=== PATIENT | male | born 2000 | race Caucasian/White ===

== ENCOUNTER 2022-02-16 21:54 | Emergency (ER) | payer OTHER ==
[~2022-02-16] VITALS: Ht 190.5 cm; Wt 61.2 kg
[~2022-02-16 21:54] MED LIST: HUMALOG100 UNIT/1 SC; INSULIN GL100 UNIT/3 SC; KPHOS NEUTRAL PO
[2022-02-16 22:38] LABS: BASOPHILS ABSOLUTE AUTO 0.02 K/mm3 (0.00-0.23); BASOPHILS PERCENT AUTO 0 % (0-2); EOSINOPHILS ABSOLUTE AUTO 0.05 K/mm3 (0.00-0.68); EOSINOPHILS PERCENT AUTO 1 % (0-6); Hematocrit 36.6 % (37.0-53.0); Hemoglobin 13.4 g/dL (13.5-17.5); IMMATURE GRAN ABSOLUTE AUTO 0.01 K/mm3 (0.00-0.10); IMMATURE GRAN PERCENT AUTO 0 % (0-1); LYMPHOCYTES ABSOLUTE AUTO 1.63 K/mm3 (0.84-5.20); LYMPHOCYTES PERCENT AUTO 36 % (21-46); MONOCYTES ABSOLUTE AUTO 0.43 K/mm3 (0.16-1.47); MONOCYTES PERCENT AUTO 10 % (4-13); Mean Corpuscular HGB Conc 36.6 g/dL (31.5-36.5); Mean Corpuscular Volume 82 fL (80-100); Mean Platelet Volume 9.7 fL (9.1-12.4); NEUTROPHILS ABSOLUTE AUTO 2.37 K/mm3 (1.96-9.15); NEUTROPHILS PERCENT AUTO 53 % (41-73); Platelet Count 196 K/mm3 (150-400); RDW Coefficient Variation 12.7 % (11.7-14.2); RDW Standard Deviation 37.5 fL (35.1-46.3); Red Blood Cell Count 4.47 M/mm3 (4.30-5.90); White Blood Cell Count 4.51 K/mm3 (4.00-11.30)
[2022-02-16 22:59] LABS: Albumin, Blood 3.6 g/dL (3.4-5.0); Albumin/Globulin Ratio 1.3 (0.8-1.8); Bilirubin, Total 0.6 mg/dL (0.1-1.0); Bun/Creatinine Ratio 23.3 (12.0-20.0); Calcium, Blood 9.1 mg/dL (8.5-10.1); Creatinine, Blood 0.69 mg/dL (0.60-1.20); Globulin, Blood 2.8 g/dL (2.2-4.0); Potassium, Blood 3.1 mmol/L (3.5-5.5); Total Protein, Blood 6.4 g/dL (6.4-8.2)
[2022-02-17] MEDS ORDERED: BASAGLAR K100 UNIT/1 SC (00:46)
[2022-02-17] MEDS ORDERED: HUMALOG100 UNIT/1 SC (00:46)
[2022-02-17 02:23] LABS: Source, Urine Clean Catch
[2022-02-17 02:32] LABS: Bilirubin, Urine Neg (Neg); Blood, Urine Neg (Neg); Glucose Qualitative, Urine 4+ (Neg); Ketones, Urine 2+ (Neg); Leukocyte Esterase, Urine Neg (Neg); Nitrite, Urine Neg (Neg); Protein, Urine Neg (Neg); Urobilinogen, Urine NORM (Normal)
[2022-02-17 02:33] LABS: Appearance, Urine Clear (Clear); Color, Urine Pale Yellow (P-Yellow)
== END 2022-02-17 03:26 | disposition home or self-care (01) ==
LOC: ER 21:54
PROVIDERS: Emergency Medicine
DX: E10.65 Type 1 diabetes mellitus with hyperglycemia (principal); Z79.4 Long term (current) use of insulin
CPT/HCPCS: 36415; 80053; 81003; 82947; 85025; 96360; 96361; 99283-25; J7030

== ENCOUNTER 2022-09-07 17:09 | Inpatient (IN) | payer OTHER ==
[~2022-09-07] VITALS: Ht 188 cm; Wt 66.1 kg
[2022-09-07 22:25] LABS: Influenza A, PCR NEGATIVE (NEGATIVE); Influenza B, PCR NEGATIVE (NEGATIVE); Resp Syncytial Virus, PCR NEGATIVE (NEGATIVE); SARS-Cov-2 (COVID-19) PCR, MMC NEGATIVE (NEGATIVE)
[2022-09-07 23:01] LABS: Source, Urine Clean Catch
[2022-09-07 23:07] LABS: Bilirubin, Urine Neg (Neg); Blood, Urine 3+ (Neg); Glucose Qualitative, Urine 4+ (Neg); Ketones, Urine 4+ (Neg); Leukocyte Esterase, Urine Neg (Neg); Nitrite, Urine Neg (Neg); Protein, Urine 2+ (Neg); Specific Gravity, Urine 1.025 (1.003-1.022); Urobilinogen, Urine NORM (Normal)
[2022-09-07 23:12] LABS: Appearance, Urine Clear (Clear); Color, Urine Yellow (P-Yellow)
[2022-09-07 23:13] LABS: Bacteria Not Seen /hpf; Red Blood Cells, Urine 0-2 /hpf (0-2); Squamous Epithelial Cells Not Seen /hpf (Few); White Blood Cells, Urine Not Seen /hpf (0-5)
[2022-09-07 23:49] LABS: Bun/Creatinine Ratio 28.5 (12.0-20.0); Calcium, Blood 8.4 mg/dL (8.5-10.1); Creatinine, Blood 0.6 mg/dL (0.60-1.20); Potassium, Blood 5.1 mmol/L (3.5-5.5)
--- NOTE | 2022-09-08 01:34 | NUR ---
PATIENT TO ROOM FROM ER AT 2350, WALKED TO BED. PATIENT IS ALERT AND ORIENTED X4. 02 SATS 100% ON RA, RR 20-25. HR SR 80s, BP STABLE, DENIES CP/PRESSURE. STARTED ON INSULIN DRIP WHEN PATIENT ARRIVED. CALLED HOSPITIALIST. WILL CHANGED FLUIDS FROM LR TO D5 1/2 NS WHEN GLUCOSE <220. MEDICATED PATIENT FOR NAUSEA. CALL LIGHT IN REACH
[2022-09-08 02:23] LABS: BASOPHILS ABSOLUTE AUTO 0.06 K/mm3 (0.00-0.23); BASOPHILS PERCENT AUTO 0 % (0-2); EOSINOPHILS PERCENT AUTO 0 % (0-6); Hematocrit 48.7 % (37.0-53.0); IMMATURE GRAN ABSOLUTE AUTO 0.27 K/mm3 (0.00-0.10); IMMATURE GRAN PERCENT AUTO 1 % (0-1); LYMPHOCYTES ABSOLUTE AUTO 1.31 K/mm3 (0.84-5.20); LYMPHOCYTES PERCENT AUTO 7 % (21-46); MONOCYTES PERCENT AUTO 6 % (4-13); Mean Corpuscular HGB 30.8 pg (26.0-34.0); Mean Corpuscular HGB Conc 32.9 g/dL (31.5-36.5); Mean Corpuscular Volume 94 fL (80-100); Mean Platelet Volume 9.5 fL (9.1-12.4); NEUTROPHILS ABSOLUTE AUTO 16.43 K/mm3 (1.96-9.15); NEUTROPHILS PERCENT AUTO 86 % (41-73); Platelet Count 293 K/mm3 (150-400); RDW Coefficient Variation 13.1 % (11.7-14.2); RDW Standard Deviation 44.6 fL (35.1-46.3); White Blood Cell Count 19.17 K/mm3 (4.00-11.30)
[2022-09-08 02:43] LABS: Bun/Creatinine Ratio 26.4 (12.0-20.0); Calcium, Blood 8.2 mg/dL (8.5-10.1); Creatinine, Blood 0.68 mg/dL (0.60-1.20); Potassium, Blood 5.4 mmol/L (3.5-5.5)
--- NOTE | 2022-09-08 06:02 | NUR ---
SHIFT SUMMARY PATIENT IS ALERT AND ORIENTED X4. 02 SATS 100% ON RA, DENIES SOB. HR SR 90s, BP STABLE. INSULIN AND D5 1/2 NS INFUSING. PATIENT INDEPENDENT IN THE ROOM, HELP WITH CORDS AND IV WHEN UP.
[2022-09-08 06:47] LABS: Bun/Creatinine Ratio 25.3 (12.0-20.0); Calcium, Blood 8.7 mg/dL (8.5-10.1); Creatinine, Blood 0.63 mg/dL (0.60-1.20); Potassium, Blood 4.4 mmol/L (3.5-5.5)
[2022-09-08 09:57] LABS: Creatinine, Blood 0.54 mg/dL (0.60-1.20)
[2022-09-08 16:04] LABS: Bun/Creatinine Ratio 22.6 (12.0-20.0); Calcium, Blood 9.1 mg/dL (8.5-10.1); Creatinine, Blood 0.53 mg/dL (0.60-1.20); Potassium, Blood 3.8 mmol/L (3.5-5.5)
[2022-09-08 17:55] LABS: Bun/Creatinine Ratio 22.6 (12.0-20.0); Calcium, Blood 9.4 mg/dL (8.5-10.1); Creatinine, Blood 0.53 mg/dL (0.60-1.20); Potassium, Blood 3.7 mmol/L (3.5-5.5)
--- NOTE | 2022-09-08 18:39 | NUR ---
SUMMARY PT RESTING IN BED. DENIES PAIN AND N/V. TOLERATING ICE CHIPS. REMAINS ON INSULIN GTT DUE TO CO2 STILL BEING LOW. INSULIN GTT TITRATED BETWEEN 1-4 UNITS/HR. NO SIGN OF DISTRESS, CALL LIGHT IN REACH.
[2022-09-08 21:12] LABS: Bun/Creatinine Ratio 19.8 (12.0-20.0); Calcium, Blood 9.1 mg/dL (8.5-10.1); Creatinine, Blood 0.56 mg/dL (0.60-1.20); Potassium, Blood 3.4 mmol/L (3.5-5.5)
--- NOTE | 2022-09-09 01:29 | NUR ---
PER HOSPITALIST ORDERS INSULIN DRIP WAS STOPPED AROUND 2200, LONG ACTING INSULIN GIVEN AND FLUIDS CHANGED TO 1/2 NS, SEE EMAR. PATIENT EATING AND TOLERATING WELL. INDEPENDENT IN ROOM AND VSS
--- NOTE | 2022-09-09 02:00 | NUR ---
PATIENT TRANSFERED TO MEDICAL FLOOR ROOM 309
--- NOTE | 2022-09-09 05:01 | NUR ---
SHIFT SUMMARY AOX4. ICU TRANS AROUND 0200. VSS. ORIGIONALLY ADMITTED FOR DKA, HAS TRANSITIONED TO AC/HS c SLIDING SCALE INSULIN, COVERAGE GIVEN @HS IN ICU. PT DENIES ANY NEEDS OR N/V, PAIN, DYSPNEA UPON ARRIVING TO RM 309. RESTING COMFORTABLY. CALL LIGHT IN REACH, WILL MONITOR.
[2022-09-09 05:44] LABS: Bun/Creatinine Ratio 20.4 (12.0-20.0); Calcium, Blood 8.7 mg/dL (8.5-10.1); Creatinine, Blood 0.59 mg/dL (0.60-1.20); Potassium, Blood 3.3 mmol/L (3.5-5.5)
[2022-09-09 12:39] LABS: Bun/Creatinine Ratio 22.5 (12.0-20.0); Calcium, Blood 8.7 mg/dL (8.5-10.1); Creatinine, Blood 0.53 mg/dL (0.60-1.20); Potassium, Blood 3.6 mmol/L (3.5-5.5)
--- NOTE | 2022-09-09 15:05 | NUR ---
DISCHARGE DKA [id number], IND IN ROOM. INSTRUCTIONS GONE OVER AT LENGTH WITH PATIENT HE DENIED FURTHER QUESTIONS. PLANS TO FOLLOW UP WITH HIS PCP. EDUCATED ON NEW MEDICATION DOSING. IVS REMOVED PRIOR TO DISCHARGE, WNL. ALL BELONGINGS WITH PATIENT.
== END 2022-09-09 14:07 | disposition home or self-care (01) | DRG 638 ==
LOC: ER 17:09 → ICUE 21:25 → ICUW 21:25 → ER 23:50 → ICUE 23:50 → ER 09-08 23:50 → ICUE 09-09 00:25 → MEDS 09-09 01:47
PROVIDERS: Emergency Medicine; Internal Medicine; Nurse Practitioner Acute Care; ADMIT Internal Medicine
DX: E10.10 Type 1 diabetes mellitus with ketoacidosis without coma (principal); R65.10 Systemic inflammatory response syndrome (SIRS) of non-infectious origin without acute organ dysfunction; F17.210 Nicotine dependence, cigarettes, uncomplicated; F12.10 Cannabis abuse, uncomplicated; Z20.822 Contact with and (suspected) exposure to COVID-19; Z79.899 Other long term (current) drug therapy; Z79.4 Long term (current) use of insulin
CPT/HCPCS: 0241U; 36415; 71045; 80048; 81001; 82947; 83036; 85025; 96361; 96374; 96375; 99285-25; A9270; J1650; J1815; J2405; J2765; J7030; J7042; J7050; J7120

== ENCOUNTER → 2022-09-07 | Outpatient (CLI) | payer OTHER ==
[~2022-09-07] MED LIST changes: +BASAGLAR K100 UNIT/1 SC
[2022-09-07 15:42] LABS: BASOPHILS ABSOLUTE AUTO 0.04 K/mm3 (0.00-0.23); BASOPHILS PERCENT AUTO 0 % (0-2); EOSINOPHILS PERCENT AUTO 0 % (0-6); Hematocrit 51.1 % (37.0-53.0); Hemoglobin 17.7 g/dL (13.5-17.5); IMMATURE GRAN ABSOLUTE AUTO 0.14 K/mm3 (0.00-0.10); IMMATURE GRAN PERCENT AUTO 1 % (0-1); LYMPHOCYTES ABSOLUTE AUTO 0.63 K/mm3 (0.84-5.20); LYMPHOCYTES PERCENT AUTO 5 % (21-46); MONOCYTES ABSOLUTE AUTO 0.55 K/mm3 (0.16-1.47); MONOCYTES PERCENT AUTO 4 % (4-13); Mean Corpuscular HGB 30.9 pg (26.0-34.0); Mean Corpuscular HGB Conc 34.6 g/dL (31.5-36.5); Mean Corpuscular Volume 89 fL (80-100); Mean Platelet Volume 9.3 fL (9.1-12.4); NEUTROPHILS ABSOLUTE AUTO 12.39 K/mm3 (1.96-9.15); NEUTROPHILS PERCENT AUTO 90 % (41-73); Platelet Count 260 K/mm3 (150-400); RDW Coefficient Variation 13.1 % (11.7-14.2); RDW Standard Deviation 42.4 fL (35.1-46.3); Red Blood Cell Count 5.72 M/mm3 (4.30-5.90); White Blood Cell Count 13.75 K/mm3 (4.00-11.30)
[2022-09-07 16:18] LABS: Base Excess Venous -22.1 mmol/L; Bicarbonate Venous 10.1 mmol/L (24.0-30.0)
[2022-09-07 16:19] LABS: pH Blood Venous 7.05 (7.34-7.37)
[2022-09-07 16:24] LABS: PCO2 Venous 30.6 mmHg (38-42)
[2022-09-07 16:54] LABS: Albumin, Blood 4.7 g/dL (3.4-5.0); Albumin/Globulin Ratio 1.3 (0.8-1.8); Bilirubin, Total 0.7 mg/dL (0.1-1.0); Bun/Creatinine Ratio 22.7 (12.0-20.0); Calcium, Blood 9.6 mg/dL (8.5-10.1); Creatinine, Blood 0.75 mg/dL (0.60-1.20); Globulin, Blood 3.7 g/dL (2.2-4.0); Potassium, Blood 5.6 mmol/L (3.5-5.5); Total Protein, Blood 8.4 g/dL (6.4-8.2)
[2022-09-07 17:04] LABS: Beta-hydroxybutyrate 83.9 mg/dL (0.2-2.8)
== END | disposition home or self-care (01) ==
LOC: LAB SHORT 15:32
PROVIDERS: Emergency Medicine
DX: R73.9 Hyperglycemia, unspecified (principal)
CPT/HCPCS: 80053; 82010; 82803; 83690; 85025

== ENCOUNTER 2022-11-18 07:19 | Emergency (ER) | payer OTHER ==
[~2022-11-18] VITALS: Ht 188 cm; Wt 68.0 kg
[2022-11-18 07:59] LABS: BASOPHILS ABSOLUTE AUTO 0.02 K/mm3 (0.00-0.23); BASOPHILS PERCENT AUTO 0 % (0-2); EOSINOPHILS ABSOLUTE AUTO 0.04 K/mm3 (0.00-0.68); EOSINOPHILS PERCENT AUTO 1 % (0-6); Hematocrit 45.2 % (37.0-53.0); Hemoglobin 16.4 g/dL (13.5-17.5); IMMATURE GRAN ABSOLUTE AUTO 0.02 K/mm3 (0.00-0.10); IMMATURE GRAN PERCENT AUTO 0 % (0-1); LYMPHOCYTES ABSOLUTE AUTO 1.08 K/mm3 (0.84-5.20); LYMPHOCYTES PERCENT AUTO 18 % (21-46); MONOCYTES ABSOLUTE AUTO 0.29 K/mm3 (0.16-1.47); MONOCYTES PERCENT AUTO 5 % (4-13); Mean Corpuscular HGB 30.7 pg (26.0-34.0); Mean Corpuscular HGB Conc 36.3 g/dL (31.5-36.5); Mean Corpuscular Volume 85 fL (80-100); Mean Platelet Volume 9.7 fL (9.1-12.4); NEUTROPHILS ABSOLUTE AUTO 4.42 K/mm3 (1.96-9.15); NEUTROPHILS PERCENT AUTO 75 % (41-73); Platelet Count 216 K/mm3 (150-400); RDW Coefficient Variation 12.3 % (11.7-14.2); RDW Standard Deviation 37.6 fL (35.1-46.3); Red Blood Cell Count 5.35 M/mm3 (4.30-5.90); White Blood Cell Count 5.87 K/mm3 (4.00-11.30)
[2022-11-18 08:04] LABS: Base Excess Venous -3.9 mmol/L; Bicarbonate Venous 22.9 mmol/L (24.0-30.0); PCO2 Venous 25.5 mmHg (38-42); pH Blood Venous 7.49 (7.34-7.37)
[2022-11-18 08:19] LABS: Albumin, Blood 4.5 g/dL (3.4-5.0); Albumin/Globulin Ratio 1.5 (0.8-1.8); Bilirubin, Total 0.8 mg/dL (0.1-1.0); Calcium, Blood 9.4 mg/dL (8.5-10.1); Creatinine, Blood 0.6 mg/dL (0.60-1.20); Potassium, Blood 3.6 mmol/L (3.5-5.5); Total Protein, Blood 7.5 g/dL (6.4-8.2)
[2022-11-18 09:34] LABS: Source, Urine Clean Catch
[2022-11-18 09:42] LABS: Appearance, Urine Clear (Clear); Bilirubin, Urine Neg (Neg); Blood, Urine 2+ (Neg); Color, Urine Yellow (P-Yellow); Glucose Qualitative, Urine 4+ (Neg); Ketones, Urine 4+ (Neg); Leukocyte Esterase, Urine Neg (Neg); Nitrite, Urine Neg (Neg); Protein, Urine 2+ (Neg); Urobilinogen, Urine NORM (Normal)
[2022-11-18 09:55] LABS: Calcium Oxalate Crystals Few /hpf; Mucus Heavy (0-Heavy); Red Blood Cells, Urine 0-2 /hpf (0-2)
[2022-11-18 09:56] LABS: Bacteria Few /hpf; Hyaline Casts 0-2 /lpf (0-2); Squamous Epithelial Cells Rare /hpf (Few)
[2022-11-18 10:00] VITALS: BP 107/81
[2022-11-18] MEDS ORDERED: ONDA4ODT MM (10:47)
== END 2022-11-18 10:49 | disposition home or self-care (01) ==
LOC: ER 07:19
PROVIDERS: Emergency Medicine
DX: R11.2 Nausea with vomiting, unspecified (principal); E10.9 Type 1 diabetes mellitus without complications; Z79.4 Long term (current) use of insulin; F17.290 Nicotine dependence, other tobacco product, uncomplicated
CPT/HCPCS: 80053; 81001; 82803; 82947; 85025; 96361; 96374; 99283-25; J2405; J7030

== ENCOUNTER 2023-02-07 15:07 | Inpatient (IN) | payer OTHER ==
[~2023-02-07] VITALS: Ht 188 cm; Wt 59.9 kg
[~2023-02-07 15:07] MED LIST changes: +ONDA4ODT MM
[2023-02-07 15:47] LABS: Base Excess Venous -19.9 mmol/L; Bicarbonate Venous 11.5 mmol/L (24.0-30.0); PCO2 Venous 31.1 mmHg (38-42)
[2023-02-07 15:48] LABS: BASOPHILS ABSOLUTE AUTO 0.08 K/mm3 (0.00-0.23); BASOPHILS PERCENT AUTO 1 % (0-2); EOSINOPHILS ABSOLUTE AUTO 0.06 K/mm3 (0.00-0.68); EOSINOPHILS PERCENT AUTO 1 % (0-6); Hemoglobin 18.6 g/dL (13.5-17.5); IMMATURE GRAN ABSOLUTE AUTO 0.07 K/mm3 (0.00-0.10); IMMATURE GRAN PERCENT AUTO 1 % (0-1); LYMPHOCYTES ABSOLUTE AUTO 2.09 K/mm3 (0.84-5.20); LYMPHOCYTES PERCENT AUTO 23 % (21-46); MONOCYTES ABSOLUTE AUTO 0.43 K/mm3 (0.16-1.47); MONOCYTES PERCENT AUTO 5 % (4-13); Mean Corpuscular HGB 31.3 pg (26.0-34.0); Mean Corpuscular HGB Conc 35.8 g/dL (31.5-36.5); Mean Corpuscular Volume 87 fL (80-100); Mean Platelet Volume 10.1 fL (9.1-12.4); NEUTROPHILS ABSOLUTE AUTO 6.49 K/mm3 (1.96-9.15); NEUTROPHILS PERCENT AUTO 70 % (41-73); Platelet Count 312 K/mm3 (150-400); RDW Standard Deviation 41.1 fL (35.1-46.3); Red Blood Cell Count 5.95 M/mm3 (4.30-5.90); White Blood Cell Count 9.22 K/mm3 (4.00-11.30)
[2023-02-07 15:55] LABS: Source, Urine Clean Catch
[2023-02-07 16:08] LABS: Appearance, Urine Clear (Clear); Bilirubin, Urine Neg (Neg); Blood, Urine 1+ (Neg); Color, Urine Yellow (P-Yellow); Glucose Qualitative, Urine 4+ (Neg); Ketones, Urine 4+ (Neg); Leukocyte Esterase, Urine Neg (Neg); Nitrite, Urine Neg (Neg); Protein, Urine 3+ (Neg); Specific Gravity, Urine 1.025 (1.003-1.022); Urobilinogen, Urine NORM (Normal)
[2023-02-07 16:32] LABS: Red Blood Cells, Urine 0-2 /hpf (0-2); White Blood Cells, Urine 0-2 /hpf (0-5)
[2023-02-07 16:33] LABS: Bacteria Few /hpf; Squamous Epithelial Cells Not Seen /hpf (Few)
[2023-02-07 16:44] LABS: Albumin, Blood 5.5 g/dL (3.4-5.0); Albumin/Globulin Ratio 1.6 (0.8-1.8); Beta-hydroxybutyrate 92.5 mg/dL (0.2-2.8); Bilirubin, Total 0.8 mg/dL (0.1-1.0); Bun/Creatinine Ratio 22.7 (12.0-20.0); Calcium, Blood 11.1 mg/dL (8.5-10.1); Creatinine, Blood 0.84 mg/dL (0.60-1.20); Globulin, Blood 3.5 g/dL (2.2-4.0); Potassium, Blood 4.4 mmol/L (3.5-5.5)
--- NOTE | 2023-02-07 18:55 | NUR ---
ADMISSION: Pt arrived to ICU 16 from ED. He is awake, A/O x 4. Insulin running at 3 units.
[2023-02-07 19:00] VITALS: BP 110/89
[2023-02-07 19:55] LABS: Bun/Creatinine Ratio 19.4 (12.0-20.0); Calcium, Blood 9.1 mg/dL (8.5-10.1); Creatinine, Blood 0.77 mg/dL (0.60-1.20)
[2023-02-07 20:00] VITALS: BP 130/85
--- NOTE | 2023-02-07 20:30 | NUR ---
ASSUMED CARE PT IS A&O X4; SPO2 >92% ON RA; MAP >65; NSR. PT DENIES CP, SOB, OR NAUSEA. STATES THAT HE FEELS BETTER THAN HE DID AT ADMIT. INSULIN GTT TITRATING W/ D5 1/2NS (SEE FLOWSHEET). PT IS COOPERATIVE W/ CARE. RESTING QUIETLY AT THIS TIME.
[2023-02-07 21:00] VITALS: BP 136/81
[2023-02-07 22:00] VITALS: BP 114/66
[2023-02-07 22:38] LABS: Bun/Creatinine Ratio 15.4 (12.0-20.0); Calcium, Blood 8.6 mg/dL (8.5-10.1); Creatinine, Blood 0.78 mg/dL (0.60-1.20); Potassium, Blood 5.1 mmol/L (3.5-5.5)
[2023-02-07 23:00] VITALS: BP 120/81
[2023-02-08] VITALS (16 sets, daily range): BP systolic 90–130; BP diastolic 57–109
[2023-02-08 02:34] LABS: Bun/Creatinine Ratio 14.9 (12.0-20.0); Calcium, Blood 8.5 mg/dL (8.5-10.1); Creatinine, Blood 0.6 mg/dL (0.60-1.20); Potassium, Blood 3.6 mmol/L (3.5-5.5)
--- NOTE | 2023-02-08 05:29 | NUR ---
SHIFT SUMMARY PT IS A&O X4; RESTING QUIETLY FOR MOST OF SHIFT. INSULIN AND D5 1/2NS INFUSING PER ORDER. NO ACUTE EVENTS OVERNIGHT. VSS.
[2023-02-08 06:37] LABS: Bun/Creatinine Ratio 13.2 (12.0-20.0); Calcium, Blood 8.5 mg/dL (8.5-10.1); Creatinine, Blood 0.61 mg/dL (0.60-1.20); Potassium, Blood 3.5 mmol/L (3.5-5.5)
[2023-02-08 10:50] LABS: Calcium, Blood 8.5 mg/dL (8.5-10.1); Creatinine, Blood 0.64 mg/dL (0.60-1.20); Potassium, Blood 3.2 mmol/L (3.5-5.5)
[2023-02-08 16:22] LABS: Bun/Creatinine Ratio 11.6 (12.0-20.0); Calcium, Blood 8.9 mg/dL (8.5-10.1); Creatinine, Blood 0.6 mg/dL (0.60-1.20); Potassium, Blood 3.7 mmol/L (3.5-5.5)
--- NOTE | 2023-02-08 18:14 | NUR ---
SUMMARY PT A/O X4. DENIES NAUSEA OR PAIN TODAY. TRANSITIONED OFF INSULIN GTT THIS AM AFTER LONG ACTING INSULIN WAS STARTED. TOLERATING DIET. CHANGED TO MEDICAL STATUS AFTER EVENING LABS. NO COMPLAINTS. INDEP IN ROOM.
--- NOTE | 2023-02-08 19:45 | NUR ---
PT TRANSFER FROM ICU 16 WITH ALL BELONGINGS AND PERSONAL EFFECTS.
--- NOTE | 2023-02-09 03:48 | NUR ---
SHIFT SUMMARY NOC TRANSFER FROM ICU FOR RESOLVED DKA. PT IS TYPE 1 DM. BEDTIME CBG 230 AND CNI PER SS. PT A/O X 4. INDEPENDENT IN ROOM, AND CONTINENT. PT HAS PG IN [place]. PT EXPECTED TO DISHCHARGE HOME TODAY AND IS BEING KEPT FOR OBSERVATION AFTER TRANSITIONING BACK TO HOME INSULIN YESTERAY AFTERNOON. PT IS CURRENTLY RESTING WITH BED IN LOWEST POSITION, AND CALL LIGHT WITHIN REACH.
[2023-02-09 05:28] VITALS: BP 112/78
[2023-02-09 07:19] VITALS: BP 120/85
--- NOTE | 2023-02-09 13:00 | NUR ---
MR JENSEN DENIED ANY PAIN TODAY, UP INDEPENDENTLY. HE ADMINISTERED HIS OWN INSULIN INJECTIONS. DISCUSSED DIABETES MANAGEMENT. HE VERBALISED UNDERSTANDING OF WRITTEN AND VERBAL DISCHARGE INSTRUCTIONS. PIV AND POWER GLIDE REMOVED INTACT. AWAITING HIS MOTHER AND RIDE.
--- NOTE | 2023-02-09 13:09 | NUR ---
DISCHARGE NOTE AMBULATED FROM MEDICAL UNIT FOR DISCHARGE AT 1309HRS
== END 2023-02-09 13:09 | disposition home or self-care (01) | DRG 638 ==
LOC: ER 15:07 → ICUE 18:15 → MEDS 02-08 19:37 → ENPENDDIS 02-09 11:22 → MEDS 02-09 13:09
PROVIDERS: Internal Medicine; Physician Assistant; ADMIT Nurse Practitioner Acute Care
DX: E10.10 Type 1 diabetes mellitus with ketoacidosis without coma (principal); R65.10 Systemic inflammatory response syndrome (SIRS) of non-infectious origin without acute organ dysfunction; E87.6 Hypokalemia; F17.210 Nicotine dependence, cigarettes, uncomplicated; F12.90 Cannabis use, unspecified, uncomplicated
CPT/HCPCS: 36415; 71046; 80048; 80053; 81001; 82010; 82803; 82947; 85025; 93005; 93010; 96361; 96374; 99285-25; A9270; C1751; J1650; J1815; J2405; J7030; J7042; J7120

== ENCOUNTER 2023-06-27 14:48 | Inpatient (IN) | payer OTHER ==
[~2023-06-27] VITALS: Ht 188 cm; Wt 64.6 kg
[2023-06-27 17:41] LABS: BASOPHILS ABSOLUTE AUTO 0.03 K/mm3 (0.00-0.23); BASOPHILS PERCENT AUTO 0 % (0-2); EOSINOPHILS ABSOLUTE AUTO 0.01 K/mm3 (0.00-0.68); EOSINOPHILS PERCENT AUTO 0 % (0-6); Hematocrit 54.3 % (37.0-53.0); Hemoglobin 19.5 g/dL (13.5-17.5); IMMATURE GRAN ABSOLUTE AUTO 0.04 K/mm3 (0.00-0.10); IMMATURE GRAN PERCENT AUTO 0 % (0-1); LYMPHOCYTES ABSOLUTE AUTO 1.32 K/mm3 (0.84-5.20); LYMPHOCYTES PERCENT AUTO 12 % (21-46); MONOCYTES ABSOLUTE AUTO 0.37 K/mm3 (0.16-1.47); MONOCYTES PERCENT AUTO 3 % (4-13); Mean Corpuscular HGB 30.7 pg (26.0-34.0); Mean Corpuscular HGB Conc 35.9 g/dL (31.5-36.5); Mean Corpuscular Volume 85 fL (80-100); Mean Platelet Volume 9.3 fL (9.1-12.4); NEUTROPHILS ABSOLUTE AUTO 8.99 K/mm3 (1.96-9.15); NEUTROPHILS PERCENT AUTO 84 % (41-73); Platelet Count 329 K/mm3 (150-400); RDW Coefficient Variation 12.4 % (11.7-14.2); RDW Standard Deviation 38.2 fL (35.1-46.3); Red Blood Cell Count 6.36 M/mm3 (4.30-5.90); White Blood Cell Count 10.76 K/mm3 (4.00-11.30)
[2023-06-27 17:42] LABS: Base Excess Venous -18.8 mmol/L; Bicarbonate Venous 11.9 mmol/L (24.0-30.0); PCO2 Venous 34.8 mmHg (38-42)
[2023-06-27 18:03] LABS: Albumin, Blood 5.3 g/dL (3.4-5.0); Albumin/Globulin Ratio 1.4 (0.8-1.8); Bilirubin, Total 0.8 mg/dL (0.1-1.0); Bun/Creatinine Ratio 21.4 (12.0-20.0); Calcium, Blood 9.9 mg/dL (8.5-10.1); Creatinine, Blood 0.84 mg/dL (0.60-1.20); Globulin, Blood 3.9 g/dL (2.2-4.0); Potassium, Blood 4.3 mmol/L (3.5-5.5); Total Protein, Blood 9.2 g/dL (6.4-8.2)
[2023-06-27] MEDS ORDERED: INSULIN LI100 UNIT/6 (19:05)
[2023-06-27] MEDS ORDERED: INSULIN GL100 UNIT/2 (19:06)
[2023-06-27 21:00] VITALS: BP 123/84
[2023-06-27 21:11] LABS: Bun/Creatinine Ratio 23.1 (12.0-20.0); Calcium, Blood 8.4 mg/dL (8.5-10.1); Creatinine, Blood 0.74 mg/dL (0.60-1.20); Magnesium, Blood 1.8 mg/dL (1.6-2.4); Potassium, Blood 4.6 mmol/L (3.5-5.5)
[2023-06-27 21:30] LABS: Base Excess Venous -20.1 mmol/L; Bicarbonate Venous 11.4 mmol/L (24.0-30.0); PCO2 Venous 29.3 mmHg (38-42); pH Blood Venous 7.11 (7.34-7.37)
[2023-06-27 22:00] VITALS: BP 118/74
--- NOTE | 2023-06-27 22:24 | NUR ---
ARRIVAL TO ICU PT ARRIVED TO ICU 9 AT 2100; HE IS HERE FOR DKA; STATES THAT BEGAN NOT FEELING WELL THIS AM AND "FELT LIKE" HE WAS IN DKA. HE IS A/O X4 AND ABLE TO MAKE HIS NEEDS KNOWN. AMBULATED TO THE ICU BED SAFELY WITH MINIMAL ASSISTANCE; MOSTLY JUST LINE MANAGMENT. VSS. INSULIN INFUSING AT 5UNITS/HR. D5 INFUSING AT 250ML/HR. ADDITIONAL BOLUS GIVEN ONCE ARRIVED TO ICU. SEE ADDMISSION ASSESSMENT FOR FULL ASSESSMENT.
[2023-06-27 23:00] VITALS: BP 109/75
[2023-06-28] VITALS (13 sets, daily range): BP systolic 97–113; BP diastolic 62–76
[2023-06-28] MEDS ORDERED: HUMALOG KW100 UNIT/1 SC (01:21)
[2023-06-28 01:33] LABS: Base Excess Venous -14.5 mmol/L; Bicarbonate Venous 14.7 mmol/L (24.0-30.0); PCO2 Venous 29.2 mmHg (38-42)
[2023-06-28 01:34] LABS: pH Blood Venous 7.25 (7.34-7.37)
[2023-06-28 01:50] LABS: Bun/Creatinine Ratio 16.5 (12.0-20.0); Creatinine, Blood 0.67 mg/dL (0.60-1.20); Potassium, Blood 3.9 mmol/L (3.5-5.5)
[2023-06-28 05:28] LABS: Base Excess Venous -8.1 mmol/L; Bicarbonate Venous 19.3 mmol/L (24.0-30.0); PCO2 Venous 27.4 mmHg (38-42)
[2023-06-28 05:52] LABS: BASOPHILS ABSOLUTE AUTO 0.02 K/mm3 (0.00-0.23); BASOPHILS PERCENT AUTO 0 % (0-2); EOSINOPHILS ABSOLUTE AUTO 0.06 K/mm3 (0.00-0.68); EOSINOPHILS PERCENT AUTO 1 % (0-6); Hematocrit 39.3 % (37.0-53.0); Hemoglobin 14.5 g/dL (13.5-17.5); IMMATURE GRAN ABSOLUTE AUTO 0.02 K/mm3 (0.00-0.10); IMMATURE GRAN PERCENT AUTO 0 % (0-1); LYMPHOCYTES ABSOLUTE AUTO 2.31 K/mm3 (0.84-5.20); LYMPHOCYTES PERCENT AUTO 32 % (21-46); MONOCYTES ABSOLUTE AUTO 0.61 K/mm3 (0.16-1.47); MONOCYTES PERCENT AUTO 9 % (4-13); Mean Corpuscular HGB 30.8 pg (26.0-34.0); Mean Corpuscular HGB Conc 36.9 g/dL (31.5-36.5); Mean Corpuscular Volume 83 fL (80-100); Mean Platelet Volume 9.4 fL (9.1-12.4); NEUTROPHILS ABSOLUTE AUTO 4.16 K/mm3 (1.96-9.15); NEUTROPHILS PERCENT AUTO 58 % (41-73); Platelet Count 224 K/mm3 (150-400); RDW Coefficient Variation 12.3 % (11.7-14.2); RDW Standard Deviation 37.2 fL (35.1-46.3); Red Blood Cell Count 4.71 M/mm3 (4.30-5.90); White Blood Cell Count 7.18 K/mm3 (4.00-11.30)
[2023-06-28 06:10] LABS: Bun/Creatinine Ratio 15.2 (12.0-20.0); Calcium, Blood 8.2 mg/dL (8.5-10.1); Creatinine, Blood 0.59 mg/dL (0.60-1.20); Potassium, Blood 3.2 mmol/L (3.5-5.5)
--- NOTE | 2023-06-28 06:32 | NUR ---
END OF SHIFT SUMMARY NO ACUTE EVENTS OVER NIGHT. HE WAS ABLE TO SLEEP BETWEEN CBG CHCECKS. HE IS A/O X4 AND ABLE TO MAKE HIS NEEDS KNOWN; HEADACHE NOTED WHEN HE ARRIVED TO ICU, PRN TYLENOL GIVEN AND HELPED. VSS. TOLERATING ICE CHIPS WELL; NO C/O NAUSEA SINCE ARRIVAL TO ICU. USES URINAL INDEPENDENTLY. D5 INFUSING AT 250ML/HR. INSULIN PLACED ON SB AT 0620 FOR CBG OF 86. MORNING POTASSIUM 3.2; CONTACTED DR ATWOOD WHO PROVIDED ORDERS TO REPLACE WITH KCL. WILL REPORT TO AM RN WHEN AVAILABLE.
[2023-06-28 06:40] LABS: Source, Urine Clean Catch
[2023-06-28 06:49] LABS: Appearance, Urine Clear (Clear); Bilirubin, Urine Neg (Neg); Blood, Urine 1+ (Neg); Color, Urine Yellow (P-Yellow); Glucose Qualitative, Urine 3+ (Neg); Ketones, Urine 4+ (Neg); Leukocyte Esterase, Urine Neg (Neg); Nitrite, Urine Neg (Neg); Protein, Urine 2+ (Neg); Urobilinogen, Urine NORM (Normal)
[2023-06-28 07:33] LABS: Granular Casts 0-2 /lpf (0); Mucus Light (0-Heavy); Red Blood Cells, Urine 0-2 /hpf (0-2); Squamous Epithelial Cells Rare /hpf (Few); White Blood Cells, Urine 0-2 /hpf (0-5)
[2023-06-28 07:34] LABS: Bacteria Rare /hpf
[2023-06-28 07:42] LABS: U Amphetamine Screen Not Detected; U Barbituate Screen Not Detected; U Benzodiazapine Screen Not Detected; U Buprenorphine Screen Not Detected; U Cannabinoids Screen Not Detected; U Cocaine Screen Not Detected; U Methadone Screen Not Detected; U Methamphetamine Screen Not Detected; U Opiates Screen Not Detected; U Oxycodone Screen Not Detected; U Phencyclidine Screen Not Detected
[2023-06-28] MEDS ORDERED: BASAGLAR K100 UNIT/1 SC (13:26)
--- NOTE | 2023-06-28 13:45 | NUR ---
Discharge. Pt discharged at 1340. Pt verbalized understanding off all discharge instructions and follow up care. All personal belongings sent with pt. Pt ambulated to lobby independently.
== END 2023-06-28 13:40 | disposition home or self-care (01) | DRG 639 ==
LOC: ER 14:48 → ICUE 20:19
PROVIDERS: Family Medicine; Physician Assistant; ADMIT Internal Medicine
DX: E10.10 Type 1 diabetes mellitus with ketoacidosis without coma (principal); R31.21 Asymptomatic microscopic hematuria; Z28.21 Immunization not carried out because of patient refusal
CPT/HCPCS: 36415; 80048; 80053; 81000; 81001; 82010; 82803; 82947; 83605; 83690; 83735; 85025; 93005; 93010; 96360; 99285-25; A9270; J1815; J2405; J3480; J7030; J7042; J7050

== ENCOUNTER 2023-11-17 11:16 | Inpatient (IN) | payer OTHER ==
[~2023-11-17] VITALS: Ht 190.5 cm; Wt 64.0 kg
[2023-11-17] VITALS (17 sets, daily range): BP systolic 108–120; BP diastolic 61–81
[~2023-11-17 11:16] MED LIST changes: +HUMALOG KW100 UNIT/1 SC; +INSULIN GL100 UNIT/2; +INSULIN GL100 UNIT/2 SQ; +INSULIN LI100 UNIT/6; +TOUJEO MAX300 UNIT/2 SC
[2023-11-17] MEDS ORDERED: NS 1,000 ML IV ONE (11:34)
[2023-11-17] MEDS ORDERED: Droperidol 5 mg/2 ml Vial IV ONE (11:45)
[2023-11-17] MEDS ORDERED: NS 1,000 ML IV SCH (11:45)
[2023-11-17 11:56] LABS: Base Excess Venous -25.5 mmol/L; Bicarbonate Venous 9.3 mmol/L (24.0-30.0); PCO2 Venous 24.1 mmHg (38-42); pH Blood Venous 6.99 (7.34-7.37)
[2023-11-17 11:57] LABS: BASOPHILS ABSOLUTE AUTO 0.09 K/mm3 (0.00-0.23); BASOPHILS PERCENT AUTO 1 % (0-2); EOSINOPHILS ABSOLUTE AUTO 0.09 K/mm3 (0.00-0.68); EOSINOPHILS PERCENT AUTO 1 % (0-6); Hematocrit 54.6 % (37.0-53.0); Hemoglobin 18.9 g/dL (13.5-17.5); IMMATURE GRAN ABSOLUTE AUTO 0.25 K/mm3 (0.00-0.10); IMMATURE GRAN PERCENT AUTO 1 % (0-1); LYMPHOCYTES ABSOLUTE AUTO 3.32 K/mm3 (0.84-5.20); LYMPHOCYTES PERCENT AUTO 18 % (21-46); MONOCYTES ABSOLUTE AUTO 0.67 K/mm3 (0.16-1.47); MONOCYTES PERCENT AUTO 4 % (4-13); Mean Corpuscular HGB 30.9 pg (26.0-34.0); Mean Corpuscular HGB Conc 34.6 g/dL (31.5-36.5); Mean Corpuscular Volume 89 fL (80-100); Mean Platelet Volume 9.7 fL (9.1-12.4); NEUTROPHILS ABSOLUTE AUTO 13.73 K/mm3 (1.96-9.15); NEUTROPHILS PERCENT AUTO 76 % (41-73); Platelet Count 434 K/mm3 (150-400); RDW Coefficient Variation 12.6 % (11.7-14.2); Red Blood Cell Count 6.11 M/mm3 (4.30-5.90); White Blood Cell Count 18.15 K/mm3 (4.00-11.30)
[2023-11-17 12:41] LABS: Albumin, Blood 5.2 g/dL (3.4-5.0); Albumin/Globulin Ratio 1.3 (0.8-1.8); Bilirubin, Total 0.7 mg/dL (0.1-1.0); Bun/Creatinine Ratio 21.2 (12.0-20.0); Calcium, Blood 10.2 mg/dL (8.5-10.1); Creatinine, Blood 0.85 mg/dL (0.60-1.20); Potassium, Blood 4.9 mmol/L (3.5-5.5); Total Protein, Blood 9.2 g/dL (6.4-8.2)
[2023-11-17] MEDS ORDERED: Insulin Human Regular 100 UNIT in NS 100 ML IV SCH (12:55)
[2023-11-17] MEDS ORDERED: Potassium Chloride 20 MEQ in Sodium Chloride 0.45% 1,000 ML IV SCH (13:00)
[2023-11-17 13:01] LABS: Beta-hydroxybutyrate 101.5 mg/dL (0.2-2.8); Phosphorus, Blood 4.7 mg/dL (2.5-4.9)
[2023-11-17] MEDS ORDERED: Dextrose 50% 50 ML Syringe IV PRN (13:20)
[2023-11-17] MEDS ORDERED: Ondansetron HCl 2 MG / ML 2ML Vial IV PRN (13:25)
[2023-11-17] MEDS ORDERED: D5W-1/2NS 1,000 ML IV SCH (14:00)
[2023-11-17] MEDS ORDERED: Sodium Chloride 0.45% 1,000 ML IV SCH (14:00)
[2023-11-17 14:30] LABS: Source, Urine Clean Catch
[2023-11-17 14:34] LABS: Appearance, Urine Clear (Clear); Bilirubin, Urine Neg (Neg); Blood, Urine 1+ (Neg); Glucose Qualitative, Urine 4+ (Neg); Ketones, Urine 4+ (Neg); Leukocyte Esterase, Urine Neg (Neg); Nitrite, Urine Neg (Neg); Protein, Urine 2+ (Neg); Specific Gravity, Urine 1.025 (1.003-1.022); Urobilinogen, Urine NORM (Normal)
[2023-11-17 14:45] LABS: Color, Urine Pale Yellow (P-Yellow)
[2023-11-17 14:48] LABS: Bacteria Rare /hpf; Hyaline Casts 0-2 /lpf (0-2); Red Blood Cells, Urine 0-2 /hpf (0-2); Squamous Epithelial Cells Rare /hpf (Few); White Blood Cells, Urine 0-2 /hpf (0-5)
--- NOTE | 2023-11-17 16:13 | NUR ---
ARRIVED TO ICU PATIENT ARRIVED TO ICU @ 1437 VIA BED. PATIENT ON ROOM AIR WITH SP02 HIGH 90'S. VSS STABLE AT TIME OF ARRIVAL. NO MEDS/FLUIDS INF AT TIME OF ARRIVAL. CALL MADE TO DR. VILLATORO TO CLARIFY FLUID ORDERS AND RECEIVED ORDER FOR REPEAT CHEM PANEL @ 1800. CBG AT ARRIVAL 411-INSULIN GTT STARTED AND 1/2 NS W/ 20MEQ KCL @ 250ML/HR. PATIENT PROVIDED WITH ICE CHIPS AND EDUCATED ON LIMITED USE FOR DRY MOUTH. NO FAMILY AT BEDSIDE, BELONGINGS WITH PATIENT. REPORT GIVEV TO CATY FERRER.
--- NOTE | 2023-11-17 17:51 | NUR ---
ASSUMED CARE AT 1600. PT HAS BEEN RESTING IN BED WITH EYES CLOSED. INSULIN GTT AND IV FLUIDS INFUSING. NO OTHER REQUESTS FROM PT AT THIS TIME. CONTINUING WITH PLAN OF CARE.
[2023-11-17 18:31] LABS: Albumin, Blood 4.6 g/dL (3.4-5.0); Albumin/Globulin Ratio 1.3 (0.8-1.8); Bilirubin, Total 0.6 mg/dL (0.1-1.0); Bun/Creatinine Ratio 17.1 (12.0-20.0); Calcium, Blood 8.5 mg/dL (8.5-10.1); Creatinine, Blood 0.82 mg/dL (0.60-1.20); Globulin, Blood 3.5 g/dL (2.2-4.0); Potassium, Blood 5.2 mmol/L (3.5-5.5); Total Protein, Blood 8.1 g/dL (6.4-8.2)
--- NOTE | 2023-11-17 21:47 | NUR ---
ASSUMPTION OF CARE: RECEIVED REPORT FROM NABIL Story RN AT 1915. PT ALERT AND ORIENTED, ANSWERING QUESTIONS AND FOLLOWING COMMANDS. PT RESTING COMFORTABLY IN BED AT TIME OF REPORT. DENIES CHEST PAIN/PRESSURE OR SOB. DENIES N/V. PT ON RA WITH SPO2 >99%. FOOD MANAGER IN PLACE, ST/ WITH HR 100'S. SBP STABLE AT TIME OF ASSESSMENT. PT VOIDING INTO URINAL YELLOW URINE WITH MINIMAL ASSIST. NO BM YET. INSULIN DRIP INFUSING AT 4.5 UNITS/HR. D5 1/2 NS INFUSING AT 200 ML/HR. PIV'S INTACT AND INFUSING. CARE CONTINUES. MOTHER AT BEDSIDE, UPDATED TO PLAN OF CARE. BED LOW AND LOCKED, CALL LIGHT IN REACH.
[2023-11-18] VITALS (16 sets, daily range): BP systolic 99–115; BP diastolic 59–89
[2023-11-18 00:09] LABS: Bun/Creatinine Ratio 15.6 (12.0-20.0); Calcium, Blood 8.6 mg/dL (8.5-10.1); Creatinine, Blood 0.64 mg/dL (0.60-1.20); Potassium, Blood 3.9 mmol/L (3.5-5.5)
[2023-11-18] MEDS ORDERED: Potassium Chloride 40 MEQ in NS 250 ML IV ONE (00:20)
[2023-11-18 04:09] LABS: Bun/Creatinine Ratio 13.1 (12.0-20.0); Calcium, Blood 8.5 mg/dL (8.5-10.1); Creatinine, Blood 0.61 mg/dL (0.60-1.20)
--- NOTE | 2023-11-18 05:22 | NUR ---
SHIFT SUMMARY: PT ABLE TO REST OFF AND ON T/O THE NIGHT. REMAINS ALERT AND ORIENTED, FOLLOWING COMMANDS AND IS PLEASANT WITH CARE. PT ON RA T/O THE SHIFT SPO2 >95%. DENIES SOB. LUNGS CLEAR. SILVERER IN PLACE, SR WITH HR 70'S. SBP STABLE T/O THE SHIFT. DENIES CHEST PAIN/PRESSURE. NO C/O N/V. INSULIN DRIP AT 1 UNIT/HR. D5 1/2 NS AT 200 ML/HR. PIVS INTACT AND INFUSING. PT ABLE TO VOID INTO URINAL. NO BM THIS SHIFT. TOLERATING ICE CHIPS. BED LOW AND LOCKED, CALL LIGHT IN REACH.
[2023-11-18 08:26] LABS: Bun/Creatinine Ratio 10.1 (12.0-20.0); Creatinine, Blood 0.69 mg/dL (0.60-1.20); Potassium, Blood 3.3 mmol/L (3.5-5.5)
[2023-11-18] MEDS ORDERED: Potassium Chloride 10 Meq Tablet SA PO ONE (08:35)
--- NOTE | 2023-11-18 08:35 | NUR ---
CHEMISTRY RESULTS CALL MADE TO DR. VILLATORO WITH CHEMISTRY RESULTS. ORDERS RECEIVED TO KEEP INSULIN GTT INF, RECHECK BMP @ 1200, AND REPLACE POTASSIUM WITH 20 MEW KCL PO X 1. DIET ORDER RECEIVED FOR CLEAR LIQUID.
[2023-11-18] MEDS ORDERED: Sodium Bicarb 8.4% Inj 100 MEQ in Sodium Chloride 0.45% 1,000 ML IV SCH (09:45)
[2023-11-18] MEDS ORDERED: Insulin Glargine-Yfgn 100 Unit/mL 3 ML SYR SC ONE (10:00)
--- NOTE | 2023-11-18 10:58 | NUR ---
Elsa is lying in bed and alert. He tells me about the events that led to his admission to the hospital and then becomes tearful as he talks about personal issues that are swirling around his world. I provided therapeutic listening and a calming presence. Patient responded well and showed signs of an elevated mood.
[2023-11-18] MEDS ORDERED: Insulin Human Lispro 100 Units/ML 3ML Syringe SC SCH (11:30)
[2023-11-18 12:20] LABS: Bun/Creatinine Ratio 9.2 (12.0-20.0); Calcium, Blood 8.5 mg/dL (8.5-10.1); Creatinine, Blood 0.65 mg/dL (0.60-1.20); Potassium, Blood 3.8 mmol/L (3.5-5.5)
[2023-11-18] MEDS ORDERED: NS 1,000 ML IV ONE (12:35)
--- NOTE | 2023-11-18 12:35 | NUR ---
NS BOLUS CALL MADE TO DR. VILLATORO WITH CHEMISTRY RESULTS OF LOW CO2 AND INCREASED GAP. ORDER RECEIVED FOR 1L NS BOLUS X 1 AND WILL REPEAT CHEMISTRY LATER TODAY.
[2023-11-18 16:46] LABS: Bun/Creatinine Ratio 7.1 (12.0-20.0); Calcium, Blood 8.3 mg/dL (8.5-10.1); Creatinine, Blood 0.85 mg/dL (0.60-1.20); Potassium, Blood 3.8 mmol/L (3.5-5.5)
[2023-11-18] MEDS ORDERED: ONDA4ODT MM (17:22)
--- NOTE | 2023-11-18 17:37 | NUR ---
DISCHARGE SODIUM BICARB GTT STOPPED. PIV'S REMOVED, PATIENT EDUCATED ON MEDICATIONS PRESCRIBED AND FOLLOW UP APPOINTMENTS TO MAKE. ALL QUESTIONS AND CONCERNS ADDRESSED. PATIENT DENIED NAUSEA T/O SHIFT. PATIENT HAD ONE UNMEASURED VOID. 1L NS BOLUS GIVEN TO FINALIZE CHEMISTRY RESULTS. PATIENT TOLERATED PO INTAKE WELL. NO OTHER CHANGES THIS SHIFT.
== END 2023-11-18 17:40 | disposition home or self-care (01) | DRG 639 ==
LOC: ER 11:16 → ICUE 13:42
PROVIDERS: Internal Medicine; Nurse Practitioner; Student in an Organized Health Care Education/Training Program; ADMIT Internal Medicine
DX: E10.10 Type 1 diabetes mellitus with ketoacidosis without coma (principal)
CPT/HCPCS: 36415; 80048; 80053; 81001; 82010; 82803; 82947; 83690; 83735; 84100; 85025; 96361; 96374; 99285-25; A9270; J1790; J1815; J3480; J7030; J7042; J7050

== ENCOUNTER 2023-12-09 11:21 | Observation (INO) | payer OTHER ==
[~2023-12-09] VITALS: Ht 188 cm; Wt 62.6 kg
[2023-12-09] VITALS (9 sets, daily range): BP systolic 105–122; BP diastolic 68–88
[2023-12-09] MEDS ORDERED: NS 1,000 ML IV SCH (11:40)
[2023-12-09 11:55] LABS: BASOPHILS ABSOLUTE AUTO 0.07 K/mm3 (0.00-0.23); BASOPHILS PERCENT AUTO 1 % (0-2); EOSINOPHILS ABSOLUTE AUTO 0.06 K/mm3 (0.00-0.68); EOSINOPHILS PERCENT AUTO 1 % (0-6); Hematocrit 50.3 % (37.0-53.0); IMMATURE GRAN ABSOLUTE AUTO 0.07 K/mm3 (0.00-0.10); IMMATURE GRAN PERCENT AUTO 1 % (0-1); LYMPHOCYTES ABSOLUTE AUTO 1.16 K/mm3 (0.84-5.20); LYMPHOCYTES PERCENT AUTO 11 % (21-46); MONOCYTES ABSOLUTE AUTO 0.42 K/mm3 (0.16-1.47); MONOCYTES PERCENT AUTO 4 % (4-13); Mean Corpuscular HGB 30.6 pg (26.0-34.0); Mean Corpuscular HGB Conc 33.8 g/dL (31.5-36.5); Mean Corpuscular Volume 91 fL (80-100); Mean Platelet Volume 9.9 fL (9.1-12.4); NEUTROPHILS ABSOLUTE AUTO 8.89 K/mm3 (1.96-9.15); NEUTROPHILS PERCENT AUTO 83 % (41-73); Platelet Count 280 K/mm3 (150-400); RDW Coefficient Variation 13.1 % (11.7-14.2); RDW Standard Deviation 43.6 fL (35.1-46.3); Red Blood Cell Count 5.56 M/mm3 (4.30-5.90); White Blood Cell Count 10.67 K/mm3 (4.00-11.30)
[2023-12-09 12:09] LABS: Base Excess Venous -24.5 mmol/L; Bicarbonate Venous 9.7 mmol/L (24.0-30.0); PCO2 Venous 20.2 mmHg (38-42); pH Blood Venous 7.06 (7.34-7.37)
[2023-12-09 12:24] LABS: Albumin, Blood 4.8 g/dL (3.4-5.0); Albumin/Globulin Ratio 1.3 (0.8-1.8); Bilirubin, Total 0.9 mg/dL (0.1-1.0); Bun/Creatinine Ratio 21.5 (12.0-20.0); Calcium, Blood 9.2 mg/dL (8.5-10.1); Creatinine, Blood 0.84 mg/dL (0.60-1.20); Globulin, Blood 3.6 g/dL (2.2-4.0); Potassium, Blood 4.6 mmol/L (3.5-5.5); Total Protein, Blood 8.4 g/dL (6.4-8.2)
[2023-12-09 12:35] LABS: Influenza A, PCR NEGATIVE (NEGATIVE); Influenza B, PCR NEGATIVE (NEGATIVE); Resp Syncytial Virus, PCR NEGATIVE (NEGATIVE); SARS-Cov-2 (COVID-19) PCR, MMC NEGATIVE (NEGATIVE)
[2023-12-09] MEDS ORDERED: Insulin Human Regular 100 UNIT in NS 100 ML IV SCH ×2 (12:40→13:40)
[2023-12-09] MEDS ORDERED: Dextrose 50% 50 ML Syringe IV PRN (13:35)
[2023-12-09] MEDS ORDERED: NS KCl 20mEq 1,000 ML IV SCH (13:40)
[2023-12-09] MEDS ORDERED: Dextrose 5% 250 ML IV PRN (13:45)
[2023-12-09 13:50] LABS: Source, Urine Clean Catch
[2023-12-09] MEDS ORDERED: Potassium Chloride 20 MEQ in Sodium Chloride 0.45% 1,000 ML IV SCH (13:50)
[2023-12-09 13:53] LABS: Appearance, Urine Clear (Clear); Bilirubin, Urine Neg (Neg); Blood, Urine 1+ (Neg); Glucose Qualitative, Urine 4+ (Neg); Ketones, Urine 4+ (Neg); Leukocyte Esterase, Urine Neg (Neg); Nitrite, Urine Pos (Neg); Protein, Urine 2+ (Neg); Specific Gravity, Urine 1.025 (1.003-1.022); Urobilinogen, Urine NORM (Normal)
[2023-12-09 14:10] LABS: Color, Urine Pale Yellow (P-Yellow)
[2023-12-09 14:11] LABS: Bacteria Few /hpf; Red Blood Cells, Urine 0-2 /hpf (0-2); Squamous Epithelial Cells Not Seen /hpf (Few); White Blood Cells, Urine 0-2 /hpf (0-5)
[2023-12-09] MEDS ORDERED: Zofran4 MG PO (14:54)
[2023-12-09 15:03] LABS: Bun/Creatinine Ratio 17.8 (12.0-20.0); Calcium, Blood 7.9 mg/dL (8.5-10.1); Creatinine, Blood 0.84 mg/dL (0.60-1.20); Potassium, Blood 5.3 mmol/L (3.5-5.5)
--- NOTE | 2023-12-09 15:08 | NUR ---
CARE ASSUMPTION PT ARRIVING FROM ER AND WAS ABLE TO TRANSFER HIMSELF TO ICU BED. PT IS ALERT AND ORIENTED COMMUNICATING APPROPRIATELY W STAFF. PT DENIES ANY NAUSEA BUT DOES ENDORSE DISCOMFORT RELATED TO HIS SUNBURN THAT IS ON HIS BACK AND ABDOMEN. PT HAS INSULIN GTT INFUSING AT 7.1 UPON ARRIVAL BUT WAS CHANGED TO 5 UNITS/HR AFTER CBG CHECKED SHOWING GLUCOSE OF 270. MONITOR SHOWING SR 90'S. BP WNL AND STABLE. SPO2 100% ON RM AIR. PT SITTING IN BED WATCHING TV DENYING ANY FURTHER NEEDS AT THIS TIME. KCL INFUSING AT 250ML/HR AND INSULIN GTT INFUSING AT 5 UNITS/HR.
[2023-12-09] MEDS ORDERED: Lactated Ringer's 1,000 ML IV SCH ×2 (15:30→16:00)
[2023-12-09] MEDS ORDERED: D5W-1/2NS 1,000 ML IV SCH (15:30)
[2023-12-09] MEDS ORDERED: Sodium Bicarb 8.4% 1 MEQ/ML 50 ML Vial IV ONE (15:40)
[2023-12-09 15:56] LABS: Base Excess Venous -21.8 mmol/L; Bicarbonate Venous 10.1 mmol/L (24.0-30.0); PCO2 Venous 28.7 mmHg (38-42); pH Blood Venous 7.07 (7.34-7.37)
[2023-12-09 16:22] LABS: Bun/Creatinine Ratio 15.5 (12.0-20.0); Calcium, Blood 7.9 mg/dL (8.5-10.1); Creatinine, Blood 0.84 mg/dL (0.60-1.20); Potassium, Blood 4.7 mmol/L (3.5-5.5)
[2023-12-09] MEDS ORDERED: Enoxaparin 40 MG/0.4 ML SYR SC SCH (17:00)
[2023-12-09 17:44] LABS: pH Blood Venous 7.23 (7.34-7.37)
[2023-12-09 17:45] LABS: Base Excess Venous -16.2 mmol/L; Bicarbonate Venous 13.7 mmol/L (24.0-30.0); PCO2 Venous 27.6 mmHg (38-42)
[2023-12-09 18:08] LABS: Bun/Creatinine Ratio 15.9 (12.0-20.0); Calcium, Blood 7.9 mg/dL (8.5-10.1); Creatinine, Blood 0.69 mg/dL (0.60-1.20); Potassium, Blood 3.7 mmol/L (3.5-5.5)
--- NOTE | 2023-12-09 18:10 | NUR ---
DAY SHIFT SUMMARY PT HAS REMAINED ALERT AND ORIENTED THIS SHIFT COMMUNICATING APPRORPAITELY W STAFF. PT HAS DENIED ANY PAIN OR NEAUSEA THIS SHIFT. PT'S CBG STABLE <200 AND HAS D5 1/2 NS INFUSING AT 150 ML/HR AND INSULIN GTT INFUSING AT 4 UNITS/HR. MONITOR SHOWING SR 80'S. BP WNL AND STABLE. PT AFEBRILE. PT RESTING COMFORTABLY IN BED DENYING ANY NEEDS AT THIS TIME. WILL REPORT TO ONCOMING RN.
--- NOTE | 2023-12-09 18:47 | NUR ---
PROVIDER CONTACT DR. BOURNE CONTACTED AND NOTIFIED OF 1730 CHEMISTRY INCLUDING K LEVEL. PROVIDER EXPRESSING INTENT OF PLACING NEW ORDERS FOR REPEAT LABS AND K REPLACEMENT.
--- NOTE | 2023-12-09 19:15 | NUR ---
ASSUMED CARE OF PATIENT PT IS AWAKE AND ALERT AND ORIENTED. PT HAS AN INSULIN GTT GOING AT 1 UNIT /HR AND D5 1/2 NS AT 150ML/HR TO RIGHT WRIST IV. HE HAS ANOTHER PIV RIGHT AC SALINE LOCKED. PT ENCOURAGED TO VOID/ AND DID STAND AND WALK TO BATHROOM TO GO. GOOD CLEAR URINE OUT. PT IS AFEBRILE DESPITE THE SUNBURN ON HIS SKIN/ABD/KNEES/BACK... STATES SKIN FEELS STIFF. PT DRINKING ICE WATER OTHERWISE NPO AT THIS TIME. VSS CURRENTLY WITH A NORMAL SINUS RHYTHM IN THE 80'S FOR HIS CARDIAC RHYTHM. BP STABLE. WILL CHECK CBG Q1HR DIRECTED PER ORDERS. LABS TO BE DRAWN Q4HR THROUGHOUT THE NIGHT.
[2023-12-09] MEDS ORDERED: Potassium Chl 20MEQ/Water100ML 100 ML IV ONE (20:30)
[2023-12-09 21:18] LABS: Bun/Creatinine Ratio 15.5 (12.0-20.0); Calcium, Blood 7.9 mg/dL (8.5-10.1); Creatinine, Blood 0.65 mg/dL (0.60-1.20); Potassium, Blood 3.6 mmol/L (3.5-5.5)
[2023-12-10] VITALS (22 sets, daily range): BP systolic 100–121; BP diastolic 65–85
[2023-12-10 00:50] LABS: Bun/Creatinine Ratio 12.5 (12.0-20.0); Calcium, Blood 8.1 mg/dL (8.5-10.1); Creatinine, Blood 0.64 mg/dL (0.60-1.20); Potassium, Blood 3.7 mmol/L (3.5-5.5)
[2023-12-10 04:37] LABS: BASOPHILS PERCENT AUTO 0 % (0-2); EOSINOPHILS ABSOLUTE AUTO 0.09 K/mm3 (0.00-0.68); EOSINOPHILS PERCENT AUTO 1 % (0-6); Hematocrit 38.4 % (37.0-53.0); Hemoglobin 13.7 g/dL (13.5-17.5); IMMATURE GRAN ABSOLUTE AUTO 0.02 K/mm3 (0.00-0.10); IMMATURE GRAN PERCENT AUTO 0 % (0-1); LYMPHOCYTES ABSOLUTE AUTO 1.73 K/mm3 (0.84-5.20); LYMPHOCYTES PERCENT AUTO 27 % (21-46); MONOCYTES ABSOLUTE AUTO 0.47 K/mm3 (0.16-1.47); MONOCYTES PERCENT AUTO 7 % (4-13); Mean Corpuscular HGB Conc 35.7 g/dL (31.5-36.5); Mean Corpuscular Volume 87 fL (80-100); Mean Platelet Volume 9.6 fL (9.1-12.4); NEUTROPHILS ABSOLUTE AUTO 4.08 K/mm3 (1.96-9.15); NEUTROPHILS PERCENT AUTO 64 % (41-73); Platelet Count 205 K/mm3 (150-400); RDW Coefficient Variation 13.2 % (11.7-14.2); Red Blood Cell Count 4.42 M/mm3 (4.30-5.90); White Blood Cell Count 6.39 K/mm3 (4.00-11.30)
--- NOTE | 2023-12-10 05:39 | NUR ---
END OF SHIFT NOTE PT HAS BEEN AWAKE MOST OF THE NIGHT D/T GLUCOSE CHECKES Q 1 HR. PT HAS REMAINED ON THE INSULIN DRIP BUT LOW AT 0.2U AND HIGH 1.5U/HR. PT IS ALSO ON THE D5 1/2 NS AT 150/HR. PT IS SIPPING ON WATER WELL. HE HAS ONLY VOIDED ONCE THUS FAR AND GOT OUT OF BED TO DO IT. HE IS OTHERWISE DOING WELL T/O THE NIGHT. VS HAVE REMAINED STABLE. AWAITING AM LAB RESULTS FOR CHEMISTRY FROM THIS AM'S LAB DRAW. PT'S 2 PIV'S ARE WORKING WELL. HE DID RECEIVE A KCL IV OVERNIGHT.
[2023-12-10 06:01] LABS: Bun/Creatinine Ratio 11.3 (12.0-20.0); Calcium, Blood 8.1 mg/dL (8.5-10.1); Creatinine, Blood 0.62 mg/dL (0.60-1.20); Potassium, Blood 3.3 mmol/L (3.5-5.5)
[2023-12-10] MEDS ORDERED: Sodium Bicarb 8.4% Inj 150 MEQ in Dextrose 5% 1,000 ML IV SCH (06:15)
[2023-12-10] MEDS ORDERED: Potassium Chloride 40 MEQ in NS 250 ML IV ONE (06:15)
[2023-12-10 08:31] LABS: Base Excess Venous -5.3 mmol/L; Bicarbonate Venous 20.7 mmol/L (24.0-30.0); PCO2 Venous 34.1 mmHg (38-42); pH Blood Venous 7.37 (7.34-7.37)
[2023-12-10 08:54] LABS: Bun/Creatinine Ratio 10.8 (12.0-20.0); Creatinine, Blood 0.55 mg/dL (0.60-1.20); Potassium, Blood 3.4 mmol/L (3.5-5.5)
[2023-12-10] MEDS ORDERED: Insulin Glargine-Yfgn 100 Unit/mL 3 ML SYR SC SCH (10:00)
[2023-12-10] MEDS ORDERED: Insulin Human Lispro 100 Units/ML 3ML Syringe SC SCH ×2 (11:30→12:30)
[2023-12-10] MEDS ORDERED: Insulin Glargine-Yfgn 100 Unit/mL 3 ML SYR SC ONE (12:00)
[2023-12-10 12:41] LABS: Bun/Creatinine Ratio 7.6 (12.0-20.0); Calcium, Blood 8.4 mg/dL (8.5-10.1); Creatinine, Blood 0.66 mg/dL (0.60-1.20); Potassium, Blood 3.5 mmol/L (3.5-5.5)
--- NOTE | 2023-12-10 16:16 | NUR ---
SHIFT SUMMARY / DISCHARGE PT HAS REMAINED AWAKE, ALERT, AND ORIENTED. PT TRANSITIONED OFF INSULIN GTT THIS AM WITH CBG'S REMAINING STABLE. PT WITH GOOD APPETITE THIS SHIFT. PT OK TO DISCHARGE PER DR BOURNE. PT VERBALIZED UNDERSTANDING OF ALL DISCHARGE INSTRUCTIONS AND SIGNED PAPERWORK. IV'S DC'D. PT WALKED OUT OF ICU AND TO BE PICKED UP BY FAMILY. ALL PT BELONGINGS SENT WITH PT.
[2023-12-11] MEDS ORDERED: Insulin Glargine-Yfgn 100 Unit/mL 3 ML SYR SC SCH (09:00)
== END 2023-12-10 16:22 | disposition home or self-care (01) ==
LOC: ER 11:21 → ICUE 11:22 → ER 13:35 → ICUE 13:35
PROVIDERS: Family Medicine; Registered Nurse; Student in an Organized Health Care Education/Training Program; ADMIT Internal Medicine
DX: E10.10 Type 1 diabetes mellitus with ketoacidosis without coma (principal); E86.0 Dehydration; E87.1 Hypo-osmolality and hyponatremia; Z79.4 Long term (current) use of insulin
CPT/HCPCS: 0241U; 36415; 80048; 80053; 81001; 82803; 82947; 83036; 83735; 83930; 84100; 85025; 87086; 93005; 93010; 94760; 96360; 96361; 96372; 96374; 96376; 99285-25; G0378; J1650; J1815; J3480; J7030; J7042; J7050; J7070

== ENCOUNTER 2024-02-17 09:15 | Inpatient (IN) | payer OTHER ==
[~2024-02-17] VITALS: Ht 188 cm; Wt 67.0 kg
[2024-02-17] VITALS (22 sets, daily range): BP systolic 105–136; BP diastolic 58–98
[~2024-02-17 09:15] MED LIST changes: +Zofran4 MG PO
[2024-02-17] MEDS ORDERED: Ondansetron HCl 2 MG / ML 2ML Vial IV ONE (10:00)
[2024-02-17] MEDS ORDERED: NS 1,000 ML IV SCH ×3 (10:00→13:00)
[2024-02-17 10:04] LABS: pH Blood Venous 7.04 (7.34-7.37)
[2024-02-17 10:05] LABS: Base Excess Venous -25.2 mmol/L; Bicarbonate Venous 9.3 mmol/L (24.0-30.0); PCO2 Venous 20.4 mmHg (38-42)
[2024-02-17 10:11] LABS: BASOPHILS ABSOLUTE AUTO 0.05 K/mm3 (0.00-0.23); BASOPHILS PERCENT AUTO 0 % (0-2); EOSINOPHILS ABSOLUTE AUTO 0.04 K/mm3 (0.00-0.68); EOSINOPHILS PERCENT AUTO 0 % (0-6); IMMATURE GRAN PERCENT AUTO 1 % (0-1); LYMPHOCYTES ABSOLUTE AUTO 2.47 K/mm3 (0.84-5.20); LYMPHOCYTES PERCENT AUTO 19 % (21-46); MONOCYTES ABSOLUTE AUTO 0.36 K/mm3 (0.16-1.47); MONOCYTES PERCENT AUTO 3 % (4-13); Mean Corpuscular HGB Conc 34.6 g/dL (31.5-36.5); Mean Corpuscular Volume 90 fL (80-100); NEUTROPHILS ABSOLUTE AUTO 9.89 K/mm3 (1.96-9.15); NEUTROPHILS PERCENT AUTO 77 % (41-73); Platelet Count 379 K/mm3 (150-400); RDW Coefficient Variation 12.2 % (11.7-14.2); RDW Standard Deviation 40.2 fL (35.1-46.3); Red Blood Cell Count 5.81 M/mm3 (4.30-5.90); White Blood Cell Count 12.91 K/mm3 (4.00-11.30)
[2024-02-17 12:21] LABS: Source, Urine Clean Catch
[2024-02-17 12:24] LABS: Appearance, Urine Clear (Clear); Bilirubin, Urine Neg (Neg); Blood, Urine 2+ (Neg); Glucose Qualitative, Urine 4+ (Neg); Ketones, Urine 4+ (Neg); Leukocyte Esterase, Urine Neg (Neg); Nitrite, Urine Neg (Neg); Protein, Urine 2+ (Neg); Specific Gravity, Urine 1.025 (1.003-1.022); Urobilinogen, Urine NORM (Normal)
[2024-02-17 12:25] LABS: Albumin, Blood 4.3 g/dL (3.4-5.0); Albumin/Globulin Ratio 1.4 (0.8-1.8); Beta-hydroxybutyrate 96.9 mg/dL (0.2-2.8); Bilirubin, Total 0.8 mg/dL (0.1-1.0); Bun/Creatinine Ratio 17.7 (12.0-20.0); Calcium, Blood 8.8 mg/dL (8.5-10.1); Creatinine, Blood 0.79 mg/dL (0.60-1.20); Globulin, Blood 3.1 g/dL (2.2-4.0); Total Protein, Blood 7.4 g/dL (6.4-8.2)
[2024-02-17] MEDS ORDERED: Insulin Human Regular 100 UNIT in NS 100 ML IV SCH (12:25)
[2024-02-17] MEDS ORDERED: Potassium Chl 20MEQ/Water100ML 100 ML IV ONE (12:25)
[2024-02-17 12:31] LABS: Color, Urine Pale Yellow (P-Yellow); White Blood Cells, Urine 0-2 /hpf (0-5)
[2024-02-17 12:32] LABS: Bacteria Rare /hpf; Red Blood Cells, Urine 0-2 /hpf (0-2); Squamous Epithelial Cells Not Seen /hpf (Few)
[2024-02-17 15:32] LABS: Albumin, Blood 4.4 g/dL (3.4-5.0); Albumin/Globulin Ratio 1.3 (0.8-1.8); Bilirubin, Total 0.5 mg/dL (0.1-1.0); Bun/Creatinine Ratio 15.9 (12.0-20.0); Calcium, Blood 8.2 mg/dL (8.5-10.1); Creatinine, Blood 0.75 mg/dL (0.60-1.20); Globulin, Blood 3.5 g/dL (2.2-4.0); Potassium, Blood 5.7 mmol/L (3.5-5.5); Total Protein, Blood 7.9 g/dL (6.4-8.2)
[2024-02-17] MEDS ORDERED: FLU VACC TS2024-25(6MOS UP)/PF 45 MCG/0.5 ML SYRINGE IM SCH (16:00)
[2024-02-17] MEDS ORDERED: NS KCl 20mEq 1,000 ML IV SCH (16:10)
[2024-02-17] MEDS ORDERED: D5W-1/2NS 1,000 ML IV SCH (19:00)
[2024-02-17 19:30] LABS: Base Excess Venous -21.2 mmol/L; Bicarbonate Venous 10.5 mmol/L (24.0-30.0); PCO2 Venous 28.2 mmHg (38-42)
[2024-02-17 19:31] LABS: pH Blood Venous 7.09 (7.34-7.37)
[2024-02-17 19:54] LABS: Bun/Creatinine Ratio 11.4 (12.0-20.0); Calcium, Blood 8.8 mg/dL (8.5-10.1); Creatinine, Blood 0.79 mg/dL (0.60-1.20); Potassium, Blood 4.2 mmol/L (3.5-5.5)
--- NOTE | 2024-02-17 23:28 | NUR ---
ASSUMPTION OF CARE PT LYING IN BED IN NO APPARENT DISTRESS. HE IS ALERT AND ORIENTED TO ALL. HR IS NSR BORDERLINE TACHYCARDIC WITH STABLE BP 131/71. PT DENIES CHEST PAIN OR SOB. PT BREATHING UNLABORED. PT DENIES N/V. INSULIN INFUSING INTO RIGHT AC AT 1 UNITS/HR ALONG WITH D51/2NS AT 200ML/HR. CALL LIGHT NEARBY.
[2024-02-17 23:31] LABS: Bicarbonate Venous 15.9 mmol/L (24.0-30.0); PCO2 Venous 25.4 mmHg (38-42); pH Blood Venous 7.32 (7.34-7.37)
[2024-02-18] VITALS (33 sets, daily range): BP systolic 101–129; BP diastolic 55–92
[2024-02-18 00:09] LABS: Bun/Creatinine Ratio 11.5 (12.0-20.0); Calcium, Blood 8.6 mg/dL (8.5-10.1); Creatinine, Blood 0.7 mg/dL (0.60-1.20); Potassium, Blood 3.6 mmol/L (3.5-5.5)
[2024-02-18 03:04] LABS: Base Excess Venous -11.3 mmol/L; Bicarbonate Venous 16.8 mmol/L (24.0-30.0); PCO2 Venous 30.1 mmHg (38-42); pH Blood Venous 7.31 (7.34-7.37)
[2024-02-18 03:28] LABS: Bun/Creatinine Ratio 10.3 (12.0-20.0); Calcium, Blood 8.7 mg/dL (8.5-10.1); Creatinine, Blood 0.68 mg/dL (0.60-1.20); Potassium, Blood 3.5 mmol/L (3.5-5.5)
--- NOTE | 2024-02-18 06:32 | NUR ---
SHIFT SUMMARY PT LYING IN BED IN NO APPARENT DISTRESS. HE IS SLEEPING BUT EASILY AWAKES TO ALERT AND ORIENTED TO ALL. HR IS NSR 60S AND 70S WITH STABLE BP 108/72. PT DENIES CHEST PAIN OR SOB. PT BREATHING UNLABORED. PT DENIES N/V. INSULIN INFUSING INTO RIGHT AC AT 2 UNITS/HR ALONG WITH D51/2NS AT 200ML/HR. 0330 LABS SHOW ANION GAP OF 15. POC AND LAB GLUCOSE LEVELS HAVE BEEN BETWEEN 116 AND 139 SINCE 0100. CALL LIGHT NEARBY.
[2024-02-18 07:38] LABS: Bun/Creatinine Ratio 9.7 (12.0-20.0); Calcium, Blood 8.4 mg/dL (8.5-10.1); Creatinine, Blood 0.72 mg/dL (0.60-1.20); Potassium, Blood 3.2 mmol/L (3.5-5.5)
[2024-02-18] MEDS ORDERED: Potassium Chl 20MEQ/Water100ML 100 ML IV SCH (07:55)
[2024-02-18] MEDS ORDERED: Enoxaparin 40 MG/0.4 ML SYR SC SCH (09:00)
[2024-02-18] MEDS ORDERED: Insulin Glargine-Yfgn 100 Unit/mL 3 ML SYR SC SCH (09:00)
[2024-02-18] MEDS ORDERED: NS 250 ML IV PRN (09:25)
[2024-02-18] MEDS ORDERED: NS 1,000 ML IV SCH (10:00)
[2024-02-18] MEDS ORDERED: Insulin Human Lispro 100 Units/ML 3ML Syringe SC SCH ×3 (11:30→17:30)
[2024-02-18 13:20] LABS: Base Excess Venous -6.4 mmol/L; Bicarbonate Venous 20.3 mmol/L (24.0-30.0); PCO2 Venous 29.1 mmHg (38-42); pH Blood Venous 7.41 (7.34-7.37)
[2024-02-18 13:54] LABS: Bun/Creatinine Ratio 7.8 (12.0-20.0); Calcium, Blood 8.4 mg/dL (8.5-10.1); Creatinine, Blood 0.77 mg/dL (0.60-1.20); Potassium, Blood 3.7 mmol/L (3.5-5.5)
[2024-02-18] MEDS ORDERED: Insulin Human Lispro 100 Units/ML 3ML Syringe SC ONE (14:25)
[2024-02-18] MEDS ORDERED: Lactated Ringer's 1,000 ML IV ONE (15:00)
[2024-02-18] MEDS ORDERED: Insulin Human Regular 100 UNIT in NS 100 ML IV SCH (15:20)
[2024-02-18] MEDS ORDERED: NS KCl 20mEq 1,000 ML IV SCH (15:30)
[2024-02-18 15:39] LABS: Base Excess Venous -3.3 mmol/L; Bicarbonate Venous 20.4 mmol/L (24.0-30.0); PCO2 Venous 43.4 mmHg (38-42); pH Blood Venous 7.33 (7.34-7.37)
[2024-02-18 16:12] LABS: Bun/Creatinine Ratio 10.3 (12.0-20.0); Calcium, Blood 8.4 mg/dL (8.5-10.1); Creatinine, Blood 0.78 mg/dL (0.60-1.20); Potassium, Blood 3.2 mmol/L (3.5-5.5)
[2024-02-18] MEDS ORDERED: D5W-1/2NS KCl 20mEq 1,000 ML IV SCH (17:40)
--- NOTE | 2024-02-18 18:19 | NUR ---
SHIFT SUMMARY PT IS LYING IN BED WATCHING TV. A&OX4. VSS. ON ROOM AIR. TOLERATED BREAKFAST AND LUNCH W/O N/V. CHANGED TO NPO BEFORE DINNER. D5 1/2 W/ KCL 20MEQ RUNNING AT 300/HR. Q1 CBG'S. BLOOD SUGARS HAVE BEEN ON THE LOW END (LOWEST OF 94) THIS AFTERNOON, NURSE NOTIFY PLACED FOR INSTRUCTIONS ON WHEN TO RESUME INSULIN DRIP. NO ACUTE EVENTS THIS SHIFT.
[2024-02-18 19:14] LABS: Base Excess Venous -3.6 mmol/L; Bicarbonate Venous 22.2 mmol/L (24.0-30.0); PCO2 Venous 32.6 mmHg (38-42); pH Blood Venous 7.42 (7.34-7.37)
[2024-02-18 19:34] LABS: Bun/Creatinine Ratio 10.8 (12.0-20.0); Calcium, Blood 8.2 mg/dL (8.5-10.1); Creatinine, Blood 0.65 mg/dL (0.60-1.20); Potassium, Blood 3.1 mmol/L (3.5-5.5)
[2024-02-18] MEDS ORDERED: Potassium Chloride 20 MEQ TabCR PO ONE ×2 (20:15→22:00)
--- NOTE | 2024-02-18 20:27 | NUR ---
ASSUMPTION OF CARE PT LYING IN BED IN NO APPARENT DISTRESS. ALERT AND ORIENTED TO ALL. HR IS NSR TO BRADYCARDIA LOW 90S TO HIGH 50S WITH STABLE BP. 120/71. PT DENIES CHEST PAIN OR SOB. PT BREATHING UNLABORED. SAT 100% ON RA. PT DENIES N/V. D51/2NS WITH 20MEQ OF KICL INFUSING INTO LEFT WRIST AT 300ML/HR. CALL LIGHT NEARBY.
[2024-02-18 23:33] LABS: Calcium, Blood 8.3 mg/dL (8.5-10.1); Creatinine, Blood 0.66 mg/dL (0.60-1.20); Magnesium, Blood 1.4 mg/dL (1.6-2.4); Potassium, Blood 3.3 mmol/L (3.5-5.5)
[2024-02-19] VITALS (9 sets, daily range): BP systolic 96–120; BP diastolic 64–85
[2024-02-19] MEDS ORDERED: Potassium Chl 20MEQ/Water100ML 100 ML IV ONE (00:20)
[2024-02-19] MEDS ORDERED: Magnesium Sulf 2 GM/Water 50ML 50 ML IV ONE (00:30)
[2024-02-19] MEDS ORDERED: Potassium Chloride 10 Meq Tablet SA PO ONE (01:30)
[2024-02-19 03:43] LABS: Bun/Creatinine Ratio 10.6 (12.0-20.0); Calcium, Blood 8.7 mg/dL (8.5-10.1); Creatinine, Blood 0.57 mg/dL (0.60-1.20); Magnesium, Blood 2.2 mg/dL (1.6-2.4); Potassium, Blood 3.2 mmol/L (3.5-5.5)
--- NOTE | 2024-02-19 05:28 | NUR ---
SHIFT SUMMARY PT LYING IN BED IN NO APPARENT DISTRESS. ALERT AND ORIENTED TO ALL. HR IS NSR TO BRADYCARDIA LOW 60S TO HIGH 40S WHILE SLEEPING WITH STABLE BP 97/72. PT DENIES CHEST PAIN OR SOB. PT BREATHING UNLABORED. SAT 100% ON RA. PT DENIES N/V. ANION GAP IS CLOSED BUT POTASSIUM REMAINS LOW AT 3.2 AFTER 60 MEQ PO. SALINE LOCKED. CALL LIGHT NEARBY.
[2024-02-19] MEDS ORDERED: Potassium Chloride 40 MEQ IV ONE (05:45)
[2024-02-19] MEDS ORDERED: Potassium Chl 20MEQ/Water100ML 100 ML IV SCH (05:59)
[2024-02-19] MEDS ORDERED: Insulin Human Lispro 100 Units/ML 3ML Syringe SC SCH (07:30)
[2024-02-19] MEDS ORDERED: Insulin Glargine-Yfgn 100 Unit/mL 3 ML SYR SC SCH ×2 (09:00)
--- NOTE | 2024-02-19 09:55 | NUR ---
ASSUMPTION OF CARE PT LYING IN BED RESTING WITH EYES CLOSED, BREATHS ARE EVEN AND UNLABORED. POTASSIUM INFUSING WITH TKO IN LAC IV. VSS. SATS ARE 100% ON ROOM AIR. CALL LIGHT IN REACH.
--- NOTE | 2024-02-19 12:09 | NUR ---
UPDATE-- HYPOGLYCEMIC EVENT AT 1120 PT AMBULATED TO TOILET, AFTER RETURING TO BED HE BEGAN TO FEEL SWEATY, TREMULOUS, AND WAS PALE. HE STATED HE FELT LIKE HIS SUGAR WAS LOW. UPON CBG CHECK, HIS BLOOD SUGAR WAS 50. PT WAS GIVEN 2 CUPS OF ORANGE JUICE AND 3 PIECES OF CHEESE. PLACED A COOL WASH CLOTH ON FOREHEAD AND GIVEN A BEDSIDE TABLE FAN. HE ATE AND DRANK 100% OF PO SUPPLEMENTS PROVIDED. UPON CBG RECHECK HIS BLOOD SUGAR WAS 149. PT STATED HE FELT BETTER. PT APPEARS TO HAVE IMPROVED, HE IS NO LONGER TREMULOUS AND HIS COLOR HAS RETURNED. STATES HE IS NO LONGER HOT OR SWEATY. LUNCH TRAY WAS ALSO GIVEN AND HE ATE 100% OF THAT WELL.
[2024-02-19 12:46] LABS: Bun/Creatinine Ratio 8.7 (12.0-20.0); Calcium, Blood 8.5 mg/dL (8.5-10.1); Creatinine, Blood 0.57 mg/dL (0.60-1.20); Potassium, Blood 3.5 mmol/L (3.5-5.5)
[2024-02-19] MEDS ORDERED: Potassium Chloride 20 MEQ TabCR PO ONE (13:10)
--- NOTE | 2024-02-19 14:20 | NUR ---
DISCHARGE PT PROVIDED DISCHARGE PAPERS AND PATIENT EDUCATION BY HEATH BYRNE. PT DENIES QUESTIONS AND VERBALIZES UNDERSTANDING. PT REPORTS FEELING WELL, VSS. PT GATHERED ALL BELONGINGS. PROVIDED ICE WATER. PT DENIES WHEELCHAIR RIDE OUT TO STEP-FATHER'S CAR. PT AMBULATED OUT OF DEPARTMENT WITH STEADY GAIT.
== END 2024-02-19 14:50 | disposition home or self-care (01) | DRG 639 ==
LOC: ER 09:15 → ICUE 09:16
PROVIDERS: Student in an Organized Health Care Education/Training Program; ADMIT Family Medicine
DX: E11.10 Type 2 diabetes mellitus with ketoacidosis without coma (principal); F17.210 Nicotine dependence, cigarettes, uncomplicated; Z79.4 Long term (current) use of insulin; Z79.899 Other long term (current) drug therapy
CPT/HCPCS: 36415; 71045; 80048; 80053; 81001; 82010; 82803; 82947; 83690; 83735; 85025; 96361; 96365; 96366; 96372; 96375; 99285-25; A9270; G0378; J1650; J1815; J2405; J3475; J3480; J7030; J7042; J7050; J7120

== ENCOUNTER 2024-05-18 09:01 | Inpatient (IN) | payer OTHER ==
[2024-05-18] VITALS (9 sets, daily range): BP systolic 98–116; BP diastolic 65–82
[~2024-05-18] VITALS: Ht 175.3 cm; Wt 72.6 kg
[2024-05-18 10:49] LABS: PCO2 Venous 28.9 mmHg (38-42); pH Blood Venous 6.97 (7.34-7.37)
[2024-05-18 10:50] LABS: Base Excess Venous -25.7 mmol/L; Bicarbonate Venous 9.3 mmol/L (24.0-30.0)
[2024-05-18 10:51] LABS: PO2 Venous 64.3 mmHg (38-42)
[2024-05-18] MEDS ORDERED: Ondansetron HCl 2 MG / ML 2ML Vial IV ONE ×2 (10:55→11:25)
[2024-05-18] MEDS ORDERED: NS 1,000 ML IV SCH ×2 (10:55→14:00)
[2024-05-18] MEDS ORDERED: FentaNYL Citrate 50 MCG/ML 2 ML Injection IV ONE ×2 (11:25→15:00)
[2024-05-18 11:47] LABS: BASOPHILS ABSOLUTE AUTO 0.15 K/mm3 (0.00-0.23); BASOPHILS PERCENT AUTO 1 % (0-2); EOSINOPHILS PERCENT AUTO 0 % (0-6); Hematocrit 53.2 % (37.0-53.0); Hemoglobin 18.2 g/dL (13.5-17.5); IMMATURE GRAN ABSOLUTE AUTO 0.49 K/mm3 (0.00-0.10); IMMATURE GRAN PERCENT AUTO 2 % (0-1); LYMPHOCYTES ABSOLUTE AUTO 2.06 K/mm3 (0.84-5.20); LYMPHOCYTES PERCENT AUTO 7 % (21-46); MONOCYTES PERCENT AUTO 3 % (4-13); Mean Corpuscular HGB 30.7 pg (26.0-34.0); Mean Corpuscular HGB Conc 34.2 g/dL (31.5-36.5); Mean Corpuscular Volume 90 fL (80-100); Mean Platelet Volume 9.6 fL (9.1-12.4); NEUTROPHILS ABSOLUTE AUTO 25.65 K/mm3 (1.96-9.15); NEUTROPHILS PERCENT AUTO 88 % (41-73); Platelet Count 426 K/mm3 (150-400); RDW Coefficient Variation 12.3 % (11.7-14.2); RDW Standard Deviation 40.4 fL (35.1-46.3); Red Blood Cell Count 5.93 M/mm3 (4.30-5.90); White Blood Cell Count 29.15 K/mm3 (4.00-11.30)
[2024-05-18 12:20] LABS: Albumin, Blood 5.2 g/dL (3.4-5.0); Albumin/Globulin Ratio 1.3 (0.8-1.8); Beta-hydroxybutyrate 113.1 mg/dL (0.2-2.8); Bilirubin, Total 0.6 mg/dL (0.1-1.0); Calcium, Blood 9.8 mg/dL (8.5-10.1); Creatinine, Blood 1.23 mg/dL (0.60-1.20); Globulin, Blood 3.9 g/dL (2.2-4.0); Potassium, Blood 6.3 mmol/L (3.5-5.5); Total Protein, Blood 9.1 g/dL (6.4-8.2)
[2024-05-18] MEDS ORDERED: Insulin Human Regular 100 UNIT in NS 100 ML IV SCH (12:25)
[2024-05-18 13:45] LABS: Source, Urine Clean Catch
[2024-05-18 13:51] LABS: Bilirubin, Urine Neg (Neg); Blood, Urine 1+ (Neg); Glucose Qualitative, Urine 4+ (Neg); Ketones, Urine 4+ (Neg); Leukocyte Esterase, Urine Neg (Neg); Nitrite, Urine Neg (Neg); Protein, Urine 2+ (Neg); Urobilinogen, Urine NORM (Normal)
[2024-05-18] MEDS ORDERED: FLU VACC TS2024-25(6MOS UP)/PF 45 MCG/0.5 ML SYRINGE IM ONE (14:00)
[2024-05-18 14:02] LABS: Color, Urine Pale Yellow (P-Yellow)
[2024-05-18 14:03] LABS: Appearance, Urine Clear (Clear)
[2024-05-18 14:04] LABS: Bacteria Mod /hpf; Mucus Light (0-Heavy); Red Blood Cells, Urine 0-2 /hpf (0-2); Squamous Epithelial Cells Rare /hpf (Few); White Blood Cells, Urine 0-2 /hpf (0-5)
[2024-05-18] MEDS ORDERED: Dextrose 50% 50 ML Vial IV PRN (14:05)
[2024-05-18] MEDS ORDERED: Ondansetron HCl 2 MG / ML 2ML Vial IV PRN (14:05)
[2024-05-18] MEDS ORDERED: Sodium Bicarb 8.4% 1 MEQ/ML 50 ML Vial IV ONE (14:15)
[2024-05-18 14:39] LABS: Base Excess Venous -28.4 mmol/L; Bicarbonate Venous 7.7 mmol/L (24.0-30.0); PCO2 Venous 21.6 mmHg (38-42); pH Blood Venous 6.91 (7.34-7.37)
[2024-05-18 14:53] LABS: Bun/Creatinine Ratio 23.5 (12.0-20.0); Calcium, Blood 9.4 mg/dL (8.5-10.1); Creatinine, Blood 1.15 mg/dL (0.60-1.20); Potassium, Blood 6.4 mmol/L (3.5-5.5)
[2024-05-18] MEDS ORDERED: FentaNYL Citrate 50 MCG/ML 2 ML Injection IV PRN (15:00)
[2024-05-18 15:02] LABS: Magnesium, Blood 2.8 mg/dL (1.6-2.4)
[2024-05-18 15:31] LABS: Phosphorus, Blood 7.5 mg/dL (2.5-4.9)
[2024-05-18 16:00] LABS: Base Excess Venous -25.9 mmol/L
[2024-05-18] MEDS ORDERED: NS 1,000 ML IV ONE (16:00)
--- NOTE | 2024-05-18 16:00 | NUR ---
[place] of care: Received patient from ED. Insulin gtt infusing at 7.3 units/hr. Bicarb push & fluids initiated per MD orders. Labs sent per orders. ST in 110 range, BP stable, oxygenation adequate on room air. Tachypneic & flushed. Alert & oriented. Powerglide bilat arms. Dr. Welch notified of most recent VBG results. 3rd bolus infusing & then will resume IVF at 250cc/hr. One time dose of 25 mcgs of fentanyl administered for generalized pain. Will continue to monitor.
[2024-05-18 16:01] LABS: PCO2 Venous 20.3 mmHg (38-42); pH Blood Venous 7.01 (7.34-7.37)
[2024-05-18 16:02] LABS: Bicarbonate Venous 8.6 mmol/L (24.0-30.0)
[2024-05-18 16:18] LABS: Glucose, Blood 542 mg/dL (70-99)
[2024-05-18] MEDS ORDERED: TOUJEO MAX300 UNIT/2 SC (16:30)
[2024-05-18] MEDS ORDERED: Pantoprazole Sodium 40 MG Injection IV SCH (16:30)
[2024-05-18 16:42] LABS: Anion Gap 36 mmol/L (3-11); Blood Urea Nitrogen 27 mg/dL (8-24); Bun/Creatinine Ratio 23.5 (12.0-20.0); CO2, Blood 4 mmol/L (21-32); Calcium, Blood 8.8 mg/dL (8.5-10.1); Chloride, Blood 103 mmol/L (98-108); Creatinine, Blood 1.15 mg/dL (0.60-1.20); Glomerular Filtration Rate 91 (60-); Potassium, Blood 5.8 mmol/L (3.5-5.5); Sodium, Blood 137 mmol/L (136-145)
[2024-05-18 17:49] LABS: Bun/Creatinine Ratio 23.8 (12.0-20.0); Calcium, Blood 8.3 mg/dL (8.5-10.1); Creatinine, Blood 1.05 mg/dL (0.60-1.20); Phosphorus, Blood 4.5 mg/dL (2.5-4.9); Potassium, Blood 5.5 mmol/L (3.5-5.5)
[2024-05-18 20:10] LABS: Base Excess Venous -20.1 mmol/L; Bicarbonate Venous 11.5 mmol/L (24.0-30.0); PCO2 Venous 26.4 mmHg (38-42)
[2024-05-18 20:11] LABS: pH Blood Venous 7.14 (7.34-7.37)
[2024-05-18 20:25] LABS: Bun/Creatinine Ratio 19.3 (12.0-20.0); Calcium, Blood 8.3 mg/dL (8.5-10.1); Creatinine, Blood 0.93 mg/dL (0.60-1.20)
[2024-05-18] MEDS ORDERED: D5W-1/2NS KCl 20mEq 1,000 ML IV SCH (21:16)
[2024-05-18 22:41] LABS: Bun/Creatinine Ratio 17.8 (12.0-20.0); Calcium, Blood 8.4 mg/dL (8.5-10.1); Creatinine, Blood 0.9 mg/dL (0.60-1.20); Potassium, Blood 4.6 mmol/L (3.5-5.5)
[2024-05-18] MEDS ORDERED: Lactated Ringer's 500 ML IV SCH (23:04)
[2024-05-19] VITALS (19 sets, daily range): BP systolic 101–124; BP diastolic 55–85
[2024-05-19 01:31] LABS: Bun/Creatinine Ratio 15.2 (12.0-20.0); Calcium, Blood 8.2 mg/dL (8.5-10.1); Creatinine, Blood 0.79 mg/dL (0.60-1.20); Potassium, Blood 4.3 mmol/L (3.5-5.5)
[2024-05-19 05:09] LABS: Base Excess Venous -10.6 mmol/L; Bicarbonate Venous 17.2 mmol/L (24.0-30.0); pH Blood Venous 7.31 (7.34-7.37)
[2024-05-19 05:14] LABS: Bun/Creatinine Ratio 14.3 (12.0-20.0); Calcium, Blood 8.7 mg/dL (8.5-10.1); Creatinine, Blood 0.77 mg/dL (0.60-1.20)
[2024-05-19] MEDS ORDERED: Pantoprazole Sodium 40 MG Injection IV SCH (06:00)
[2024-05-19 06:29] LABS: BASOPHILS ABSOLUTE AUTO 0.01 K/mm3 (0.00-0.23); BASOPHILS PERCENT AUTO 0 % (0-2); EOSINOPHILS ABSOLUTE AUTO 0.01 K/mm3 (0.00-0.68); EOSINOPHILS PERCENT AUTO 0 % (0-6); Hematocrit 40.9 % (37.0-53.0); Hemoglobin 14.4 g/dL (13.5-17.5); IMMATURE GRAN ABSOLUTE AUTO 0.12 K/mm3 (0.00-0.10); IMMATURE GRAN PERCENT AUTO 1 % (0-1); LYMPHOCYTES ABSOLUTE AUTO 1.32 K/mm3 (0.84-5.20); LYMPHOCYTES PERCENT AUTO 8 % (21-46); MONOCYTES ABSOLUTE AUTO 1.03 K/mm3 (0.16-1.47); MONOCYTES PERCENT AUTO 7 % (4-13); Mean Corpuscular HGB 30.4 pg (26.0-34.0); Mean Corpuscular HGB Conc 35.2 g/dL (31.5-36.5); Mean Corpuscular Volume 86 fL (80-100); Mean Platelet Volume 9.4 fL (9.1-12.4); NEUTROPHILS ABSOLUTE AUTO 13.36 K/mm3 (1.96-9.15); NEUTROPHILS PERCENT AUTO 84 % (41-73); Platelet Count 270 K/mm3 (150-400); RDW Coefficient Variation 12.4 % (11.7-14.2); RDW Standard Deviation 39.1 fL (35.1-46.3); Red Blood Cell Count 4.74 M/mm3 (4.30-5.90); White Blood Cell Count 15.85 K/mm3 (4.00-11.30)
--- NOTE | 2024-05-19 08:30 | NUR ---
[place] of care: Resting in bed with no complaints. Neurologically intact. Vital signs stable on room air. Insulin gtt infusing per protocol. D5&1/2NS with 20KCL at 200cc/hr. NPO. Voiding. Powerglide bilat arms. Discussed case with Dr. Yates. Will continue to monitor.
[2024-05-19] MEDS ORDERED: NS 1,000 ML IV SCH (08:50)
[2024-05-19] MEDS ORDERED: Enoxaparin 40 MG/0.4 ML SYR SC SCH (09:00)
[2024-05-19 09:22] LABS: Bun/Creatinine Ratio 11.6 (12.0-20.0); Creatinine, Blood 0.78 mg/dL (0.60-1.20); Potassium, Blood 3.7 mmol/L (3.5-5.5)
[2024-05-19 12:43] LABS: Bun/Creatinine Ratio 10.2 (12.0-20.0); Calcium, Blood 9.3 mg/dL (8.5-10.1); Creatinine, Blood 0.78 mg/dL (0.60-1.20); Potassium, Blood 3.5 mmol/L (3.5-5.5)
[2024-05-19] MEDS ORDERED: Potassium Chl 20MEQ/Water100ML 100 ML IV SCH (13:00)
[2024-05-19] MEDS ORDERED: Insulin Glargine-Yfgn 100 Unit/mL 3 ML SYR SC SCH (13:00)
[2024-05-19] MEDS ORDERED: Insulin Regular 100 UNIT/ML 10ML Vial SC SCH (16:30)
[2024-05-19] MEDS ORDERED: Insulin Human Lispro 100 Units/ML 3ML Syringe SC SCH (16:30)
--- NOTE | 2024-05-19 18:27 | NUR ---
PT WAS A TRANSFER FROM ICU. PT IS A&OX4, VSS AND ON RA. PT HAS NO C/O PAIN, BLOOD SUGARS REMAINING STABLE WITH NO INTERVENTIONS. PT HAS NO QUESTIONS OR CONCERNS AT THIS TIME.
[2024-05-20 03:56] VITALS: BP 111/75
--- NOTE | 2024-05-20 04:09 | NUR ---
SHIFT SUMMARY PATIENT SLEPT IN LONG INTERVALS. CBG'S WNL, NOT REQUIRING COVERAGE AT . PLEASANT WITH CARE. DID NOT REQUIRE ANY PRN MEDS.
[2024-05-20 07:06] LABS: Bun/Creatinine Ratio 13.7 (12.0-20.0); Calcium, Blood 9.2 mg/dL (8.5-10.1); Creatinine, Blood 0.73 mg/dL (0.60-1.20); Potassium, Blood 3.1 mmol/L (3.5-5.5)
[2024-05-20 07:25] VITALS: BP 118/86
[2024-05-20] MEDS ORDERED: Potassium Chloride 20 MEQ/15 ML UDC PO ONE (11:00)
--- NOTE | 2024-05-20 12:22 | NUR ---
PT WAS DISHCARGED FROM THE HOSPITAL. PT WAS GIVEN D/C INSTRUCTIONS AND PT HAD NO QUESTIONS OR CONCERNS. ALL IV'S REMOVED.
== END 2024-05-20 12:21 | disposition home or self-care (01) | DRG 638 ==
LOC: ER 09:01 → ICUE 09:02 → MEDS 05-19 17:57 → ENPENDDIS 05-20 11:35 → MEDS 05-20 12:21
PROVIDERS: Emergency Medicine; Family Medicine; Physician Assistant; Student in an Organized Health Care Education/Training Program; ADMIT Internal Medicine
DX: E10.10 Type 1 diabetes mellitus with ketoacidosis without coma (principal); E87.1 Hypo-osmolality and hyponatremia; N17.9 Acute kidney failure, unspecified; E87.5 Hyperkalemia; E86.0 Dehydration; M54.50 Low back pain, unspecified; Z87.442 Personal history of urinary calculi; Z79.4 Long term (current) use of insulin; Z79.899 Other long term (current) drug therapy; R07.89 Other chest pain; F17.210 Nicotine dependence, cigarettes, uncomplicated
CPT/HCPCS: 36415; 80048; 80053; 81001; 82010; 82803; 82947; 83690; 83735; 84100; 85025; 87086; 93005; 93010; 96361; 96372; 96374; 96375; 96376; 99284-25; A9270; C1751; G0378; J1650; J1815; J2405; J2470; J3010; J3480; J7030; J7120

== ENCOUNTER 2024-06-01 13:33 | Inpatient (IN) | payer OTHER ==
[~2024-06-01] VITALS: Ht 188 cm; Wt 67.4 kg
[2024-06-01 14:30] LABS: Hematocrit 49.6 % (37.0-53.0); Hemoglobin 17.1 g/dL (13.5-17.5); Mean Corpuscular HGB 31.2 pg (26.0-34.0); Mean Corpuscular HGB Conc 34.5 g/dL (31.5-36.5); Mean Corpuscular Volume 91 fL (80-100); Mean Platelet Volume 9.3 fL (9.1-12.4); Platelet Count 531 K/mm3 (150-400); RDW Coefficient Variation 12.9 % (11.7-14.2); RDW Standard Deviation 42.1 fL (35.1-46.3); Red Blood Cell Count 5.48 M/mm3 (4.30-5.90); White Blood Cell Count 48.36 K/mm3 (4.00-11.30)
[2024-06-01 14:48] LABS: CORONAVIRUS COVID-19 AG Negative (NEGATIVE); INFLUENZA A AG Negative (NEGATIVE); INFLUENZA B AG Negative (NEGATIVE)
[2024-06-01 15:00] LABS: BASOPHILS PERCENT MAN 0 % (0-2); EOSINOPHILS PERCENT MAN 0 % (0-6); LYMPHOCYTES ABSOLUTE MAN 5.31 K/mm3 (0.84-5.20); LYMPHOCYTES PERCENT MAN 11 % (21-46); MONOCYTES ABSOLUTE MAN 1.93 K/mm3 (0.16-1.47); MONOCYTES PERCENT MAN 4 % (4-13); MYELOCYTE ABSOLUTE MAN 0.48 K/mm3 (0.00-0.00); MYELOCYTE PERCENT MAN 1 % (0-0); NEUTROPHILS ABSOLUTE MAN 40.62 K/mm3 (1.96-9.15); SEG NEUTROPHILS PERCENT MAN 84 % (41-73); TOTAL CELLS COUNTED 100
[2024-06-01] MEDS ORDERED: NS 1,000 ML IV SCH (15:35)
[2024-06-01] MEDS ORDERED: CefTRIAXone Sodium 1,000 MG in NS 50 ML IV ONE (15:40)
[2024-06-01] MEDS ORDERED: Insulin Human Regular 100 UNIT in NS 100 ML IV SCH (15:40)
[2024-06-01] MEDS ORDERED: Lactated Ringer's 1,000 ML IV ONE (15:40)
[2024-06-01 16:09] LABS: Albumin, Blood 4.7 g/dL (3.4-5.0); Albumin/Globulin Ratio 1.1 (0.8-1.8); Beta-hydroxybutyrate 104.9 mg/dL (0.2-2.8); Bilirubin, Total 0.8 mg/dL (0.1-1.0); Bun/Creatinine Ratio 22.8 (12.0-20.0); Calcium, Blood 9.1 mg/dL (8.5-10.1); Creatinine, Blood 1.23 mg/dL (0.60-1.20); Globulin, Blood 4.1 g/dL (2.2-4.0); Potassium, Blood 5.6 mmol/L (3.5-5.5); Total Protein, Blood 8.8 g/dL (6.4-8.2)
[2024-06-01 16:11] LABS: Base Excess Venous -27.7 mmol/L; Bicarbonate Venous 8.1 mmol/L (24.0-30.0); pH Blood Venous 6.99 (7.34-7.37)
[2024-06-01] MEDS ORDERED: Ondansetron HCl 2 MG / ML 2ML Vial IV ONE (16:20)
[2024-06-01] MEDS ORDERED: Lactated Ringer's 1,000 ML IV SCH (17:25)
[2024-06-01] MEDS ORDERED: Sodium Bicarb 8.4% 1 MEQ/ML 50 ML Vial IV ONE (17:30)
[2024-06-01] MEDS ORDERED: Dextrose 50% 50 ML Syringe IV PRN (17:30)
[2024-06-01] MEDS ORDERED: Ondansetron HCl 2 MG / ML 2ML Vial IV PRN (17:30)
[2024-06-01] MEDS ORDERED: Metoclopramide HCl 5MG / ML 2ML Vial IV PRN (17:30)
[2024-06-01 18:32] LABS: Source, Urine Clean Catch
--- NOTE | 2024-06-01 18:40 | NUR ---
ASSUMED CARE PT A&OX4 AND ANSWERING QUESTIONS APPROPRIATLY. HE IS ON ROOM AIR, SATS > 94%, TACHYPNEIC, C/O SOB. 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 HE WAS ABLE TO TRANSFER FROM [facility] TO BED WITH SBA FOR DIZZINESS/WEAKNESS. HE VOIDED 1900ML INTO URINAL STANDING AT BEDSIDE WITH RN ASSISTANCE, UA SENT TO LAB. REPORTED BM THIS AM. TWO PATENT PIVS IN PLACE. INSULIN GTT INFUSING AT 6.9 UNITS AT TIME OF ARRIVAL. MAINTENANCE FLUIDS STARTED AT 500 ML/H OF LR. AMP OF BICARB GIVEN UPON ARRIVAL. TMAX OF 99.5, COOL CLOTH PLACED TO FOREHEAD. ZOFRAN GIVEN IN ED FOR N/V. PT RESTING IN BED, RESPONDING TO VERBAL STUMILI.
[2024-06-01 18:43] LABS: Appearance, Urine Clear (Clear); Bilirubin, Urine Neg (Neg); Blood, Urine 2+ (Neg); Glucose Qualitative, Urine 4+ (Neg); Ketones, Urine 4+ (Neg); Leukocyte Esterase, Urine Neg (Neg); Nitrite, Urine Neg (Neg); Protein, Urine 2+ (Neg); Urobilinogen, Urine NORM (Normal)
[2024-06-01 18:53] LABS: Color, Urine Pale Yellow (P-Yellow)
[2024-06-01 18:54] LABS: Bacteria Rare /hpf; White Blood Cells, Urine 0-2 /hpf (0-5)
[2024-06-01 18:56] LABS: Squamous Epithelial Cells Rare /hpf (Few)
[2024-06-01 19:00] VITALS: BP 121/77
[2024-06-01 19:21] LABS: Bun/Creatinine Ratio 25.5 (12.0-20.0); Calcium, Blood 8.3 mg/dL (8.5-10.1); Creatinine, Blood 1.06 mg/dL (0.60-1.20); Potassium, Blood 5.8 mmol/L (3.5-5.5)
[2024-06-01] MEDS ORDERED: NS 250 ML IV PRN (19:40)
[2024-06-01] MEDS ORDERED: D5W-1/2NS 1,000 ML IV SCH (19:40)
[2024-06-01 20:00] VITALS: BP 126/81
--- NOTE | 2024-06-01 20:18 | NUR ---
ASSUMED CARE PT LYING IN BED, AROUSING TO VERBAL STIMULI. TACHYPNEIC AND FLUSHED. D5 1/2NS AND INSULIN INFUSING (SEE FLOWSHEET). MOM AT BEDSIDE. DENIES CP, SOB, AND NAUSEA AT THIS TIME.
[2024-06-01 21:00] VITALS: BP 121/72
[2024-06-01 22:20] LABS: Bun/Creatinine Ratio 19.9 (12.0-20.0); Calcium, Blood 8.7 mg/dL (8.5-10.1); Creatinine, Blood 0.85 mg/dL (0.60-1.20); Potassium, Blood 4.4 mmol/L (3.5-5.5)
[2024-06-01 23:00] VITALS: BP 110/72
[2024-06-02] VITALS (15 sets, daily range): BP systolic 96–120; BP diastolic 60–77
[2024-06-02 02:24] LABS: Hematocrit 39.1 % (37.0-53.0); Hemoglobin 14.4 g/dL (13.5-17.5); Mean Corpuscular HGB 31.1 pg (26.0-34.0); Mean Corpuscular HGB Conc 36.8 g/dL (31.5-36.5); Mean Corpuscular Volume 84 fL (80-100); Mean Platelet Volume 8.6 fL (9.1-12.4); Platelet Count 265 K/mm3 (150-400); RDW Standard Deviation 39.4 fL (35.1-46.3); Red Blood Cell Count 4.63 M/mm3 (4.30-5.90); White Blood Cell Count 20.73 K/mm3 (4.00-11.30)
[2024-06-02 02:41] LABS: Bun/Creatinine Ratio 17.9 (12.0-20.0); Calcium, Blood 8.7 mg/dL (8.5-10.1); Creatinine, Blood 0.73 mg/dL (0.60-1.20); Magnesium, Blood 1.7 mg/dL (1.6-2.4); Phosphorus, Blood 2.3 mg/dL (2.5-4.9); Potassium, Blood 3.8 mmol/L (3.5-5.5)
[2024-06-02] MEDS ORDERED: Potassium Phosphate Dibasic 15 MM in Dextrose 5% 250 ML IV ONE (04:00)
[2024-06-02 06:23] LABS: Bun/Creatinine Ratio 15.6 (12.0-20.0); Calcium, Blood 8.8 mg/dL (8.5-10.1); Creatinine, Blood 0.7 mg/dL (0.60-1.20); Potassium, Blood 3.4 mmol/L (3.5-5.5)
--- NOTE | 2024-06-02 06:49 | NUR ---
SHIFT SUMMARY NO ACUTE EVENTS OVERNIGHT. PT RESTED QUIETLY/SLEPT FOR MOST OF NIGHT. NO NEW COMPLAINTS OF CP, SOB, AND NAUSEA. DENIES ABDOMINAL PAIN AT THIS TIME. INSULIN GTT @ 3 UNITS/HR, D5 1/2NS @ 250MLS/HR.
[2024-06-02 06:57] LABS: Bicarbonate Venous 20.2 mmol/L (24.0-30.0); PCO2 Venous 34.4 mmHg (38-42); pH Blood Venous 7.36 (7.34-7.37)
--- NOTE | 2024-06-02 07:05 | NUR ---
KPHOS KPHOS LATE D/T ARRIVING LATE FROM PHARMACY.
[2024-06-02] MEDS ORDERED: Potassium Chloride 40 MEQ in NS 250 ML IV ONE (07:40)
[2024-06-02] MEDS ORDERED: NS 1,000 ML IV SCH (07:50)
[2024-06-02] MEDS ORDERED: Insulin Glargine-Yfgn 100 Unit/mL 3 ML SYR SC SCH (08:00)
[2024-06-02] MEDS ORDERED: D5W-1/2NS 1,000 ML IV ONE (08:15)
[2024-06-02] MEDS ORDERED: Enoxaparin 40 MG/0.4 ML SYR SC SCH (09:00)
[2024-06-02 10:48] LABS: Calcium, Blood 8.4 mg/dL (8.5-10.1); Creatinine, Blood 0.7 mg/dL (0.60-1.20); Potassium, Blood 3.2 mmol/L (3.5-5.5)
[2024-06-02] MEDS ORDERED: Insulin Human Lispro 100 Units/ML 3ML Syringe SC SCH ×2 (11:30→17:30)
[2024-06-02] MEDS ORDERED: Potassium Chloride 20 MEQ TabCR PO ONE (12:05)
[2024-06-02 14:49] LABS: Bun/Creatinine Ratio 10.2 (12.0-20.0); Calcium, Blood 8.7 mg/dL (8.5-10.1); Creatinine, Blood 0.69 mg/dL (0.60-1.20); Potassium, Blood 3.9 mmol/L (3.5-5.5)
[2024-06-02 19:16] LABS: Calcium, Blood 8.8 mg/dL (8.5-10.1); Creatinine, Blood 0.66 mg/dL (0.60-1.20)
[2024-06-02 22:04] LABS: Bun/Creatinine Ratio 9.4 (12.0-20.0); Calcium, Blood 9.6 mg/dL (8.5-10.1); Creatinine, Blood 0.75 mg/dL (0.60-1.20); Potassium, Blood 3.6 mmol/L (3.5-5.5)
[2024-06-03 04:19] VITALS: BP 106/75
--- NOTE | 2024-06-03 04:38 | NUR ---
SHIFT SUMMARY: PT AOX4 WITH NO ACUTE CHANGES OR COMPLAINTS THROUGH OUT THE NIGHT. WAS ABLE TO SLEEP AND REST A MAJORITY OF IT WITHOUT ISSUE. GOT UP FOR A WALK AND TO VOID AND NOTHING OUTSIDE OF THOSE EVENTS. PT SLEEPING IN BED, BED IN LOWEST POSITION, CALL LIGHT IN REACH. CONTINUING CARE.
[2024-06-03 05:18] LABS: BASOPHILS ABSOLUTE AUTO 0.03 K/mm3 (0.00-0.23); BASOPHILS PERCENT AUTO 1 % (0-2); EOSINOPHILS ABSOLUTE AUTO 0.02 K/mm3 (0.00-0.68); EOSINOPHILS PERCENT AUTO 0 % (0-6); Hematocrit 37.4 % (37.0-53.0); Hemoglobin 13.5 g/dL (13.5-17.5); IMMATURE GRAN ABSOLUTE AUTO 0.02 K/mm3 (0.00-0.10); IMMATURE GRAN PERCENT AUTO 0 % (0-1); LYMPHOCYTES ABSOLUTE AUTO 1.46 K/mm3 (0.84-5.20); LYMPHOCYTES PERCENT AUTO 27 % (21-46); MONOCYTES ABSOLUTE AUTO 0.35 K/mm3 (0.16-1.47); MONOCYTES PERCENT AUTO 7 % (4-13); Mean Corpuscular HGB 30.5 pg (26.0-34.0); Mean Corpuscular HGB Conc 36.1 g/dL (31.5-36.5); Mean Corpuscular Volume 85 fL (80-100); Mean Platelet Volume 8.9 fL (9.1-12.4); NEUTROPHILS ABSOLUTE AUTO 3.52 K/mm3 (1.96-9.15); NEUTROPHILS PERCENT AUTO 65 % (41-73); Platelet Count 205 K/mm3 (150-400); RDW Coefficient Variation 13.2 % (11.7-14.2); RDW Standard Deviation 40.4 fL (35.1-46.3); Red Blood Cell Count 4.42 M/mm3 (4.30-5.90)
[2024-06-03 06:10] LABS: Albumin, Blood 3.4 g/dL (3.4-5.0); Bilirubin, Total 0.5 mg/dL (0.1-1.0); Bun/Creatinine Ratio 11.2 (12.0-20.0); Calcium, Blood 9.3 mg/dL (8.5-10.1); Creatinine, Blood 0.72 mg/dL (0.60-1.20)
[2024-06-03 06:11] LABS: Albumin/Globulin Ratio 1.2 (0.8-1.8); Globulin, Blood 2.9 g/dL (2.2-4.0)
[2024-06-03 06:12] LABS: Total Protein, Blood 6.3 g/dL (6.4-8.2)
[2024-06-03] MEDS ORDERED: Magnesium Sulf 2 GM/Water 50ML 50 ML IV ONE (06:35)
[2024-06-03] MEDS ORDERED: Potassium Chloride 40 MEQ in NS 250 ML IV ONE (06:35)
[2024-06-03 08:07] VITALS: BP 115/75
[2024-06-03] MEDS ORDERED: Potassium Chloride 20 MEQ TabCR PO SCH (09:00)
[2024-06-03] MEDS ORDERED: Insulin Glargine-Yfgn 100 Unit/mL 3 ML SYR SC SCH (09:00)
[2024-06-03 09:46] LABS: Bun/Creatinine Ratio 14.8 (12.0-20.0); Creatinine, Blood 0.68 mg/dL (0.60-1.20)
[2024-06-03] MEDS ORDERED: Potassium Chl 10MEQ/Water100ML 100 ML IV SCH (10:40)
--- NOTE | 2024-06-03 13:52 | NUR ---
SHIFT SUMMARY AND DISCHARGE PATIENT ALERT AND INTERACTIVE. PATIENT INDEPENDENT IN THE ROOM. EDUCATION RELATED TO DIABETES AND GLUCOSE CONTROL. DISCHARGE INSTRUCTIONS REVEIWED WITH PATIENT. IV'S DC'D ROOM CHECK DONE BEFORE DEPARTURE. PATIENT AMBULATED OUT WITH RN.
== END 2024-06-03 13:11 | disposition home or self-care (01) | DRG 638 ==
LOC: ER 13:33 → ICUE 13:34 → MEDS 06-02 16:34 → ENPENDDIS 06-03 12:31 → MEDS 06-03 13:11
PROVIDERS: Nurse Practitioner Acute Care; Student in an Organized Health Care Education/Training Program; ADMIT Student in an Organized Health Care Education/Training Program
DX: E10.10 Type 1 diabetes mellitus with ketoacidosis without coma (principal); N17.9 Acute kidney failure, unspecified; E87.5 Hyperkalemia; Z87.442 Personal history of urinary calculi; Z79.4 Long term (current) use of insulin; E86.0 Dehydration
CPT/HCPCS: 36415; 71045; 74177; 80048; 80053; 81001; 82010; 82803; 82947; 83605; 83735; 84100; 85025; 85027; 87040; 87428-QW; 93005; 93010; 96365; 96375; 99285-25; A9270; J0696; J1650; J1815; J2405; J3475; J7030; J7042; J7050; J7060; J7120; Q9967

== ENCOUNTER 2025-03-22 20:12 | Inpatient (IN) | payer OTHER ==
[~2025-03-22] VITALS: Ht 188 cm; Wt 65.2 kg
[2025-03-22] MEDS ORDERED: NS 1,000 ML IV SCH ×2 (20:50→23:15)
[2025-03-22 21:29] LABS: pH Blood Venous 7.11 (7.34-7.37)
[2025-03-22] MEDS ORDERED: Ondansetron HCl 2 MG / ML 2ML Vial IV ONE (21:35)
[2025-03-22 21:49] LABS: BASOPHILS ABSOLUTE AUTO 0.14 K/mm3 (0.00-0.23); BASOPHILS PERCENT AUTO 0 % (0-2); EOSINOPHILS ABSOLUTE AUTO 0.02 K/mm3 (0.00-0.68); EOSINOPHILS PERCENT AUTO 0 % (0-6); Hematocrit 49.7 % (37.0-53.0); Hemoglobin 17.6 g/dL (13.5-17.5); IMMATURE GRAN ABSOLUTE AUTO 0.46 K/mm3 (0.00-0.10); IMMATURE GRAN PERCENT AUTO 1 % (0-1); LYMPHOCYTES ABSOLUTE AUTO 1.57 K/mm3 (0.84-5.20); LYMPHOCYTES PERCENT AUTO 5 % (21-46); MONOCYTES ABSOLUTE AUTO 1.38 K/mm3 (0.16-1.47); MONOCYTES PERCENT AUTO 4 % (4-13); Mean Corpuscular HGB Conc 35.4 g/dL (31.5-36.5); Mean Corpuscular Volume 89 fL (80-100); NEUTROPHILS ABSOLUTE AUTO 30.20 K/mm3 (1.96-9.15); NEUTROPHILS PERCENT AUTO 89 % (41-73); NRBC ABSOLUTE 0.00 K/mm3 (0.00-0.02); NRBC Auto 0.0 /100 WBC (0.0-0.2); Platelet Count 368 K/mm3 (150-400); RDW Coefficient Variation 13.6 % (11.7-14.2); RDW Standard Deviation 45.0 fL (35.1-46.3)
[2025-03-22 23:12] LABS: Alanine Aminotransfer (ALT/SGP 55.0 U/L (12-78); Albumin, Blood 4.2 g/dL (3.4-5.0); Albumin/Globulin Ratio 1.2 (0.8-1.8); Anion Gap 24.0 mmol/L (3-11); Aspartate Aminotrans (AST/SGOT 43.0 U/L (12-37); Bilirubin, Total 0.6 mg/dL (0.1-1.0); Blood Urea Nitrogen 24.0 mg/dL (8-24); CO2, Blood 11.0 mmol/L (21-32); Calcium, Blood 8.7 mg/dL (8.5-10.1); Chloride, Blood 101.0 mmol/L (98-108); Creatinine, Blood 1.1 mg/dL (0.60-1.20); Globulin, Blood 3.4 g/dL (2.2-4.0); Glucose, Blood 168.0 mg/dL (70-99); Potassium, Blood 5.1 mmol/L (3.5-5.5); Sodium, Blood 131.0 mmol/L (136-145); Total Protein, Blood 7.6 g/dL (6.4-8.2)
[2025-03-22] MEDS ORDERED: Ondansetron HCl 2 MG / ML 2ML Vial IV PRN (23:45)
[2025-03-22] MEDS ORDERED: FLU VACC TS2025-26(6MOS UP)/PF 45 MCG/0.5 ML SYRINGE IM SCH (23:45)
[2025-03-23] VITALS (9 sets, daily range): BP systolic 108–117; BP diastolic 69–91
[2025-03-23] MEDS ORDERED: Insulin Human Regular 100 UNIT in NS 100 ML IV SCH (00:20)
[2025-03-23 03:04] LABS: pH Blood Venous 7.09 (7.34-7.37)
[2025-03-23 03:22] LABS: Magnesium, Blood 1.8 mg/dL (1.6-2.4)
[2025-03-23 03:27] LABS: Anion Gap 27.0 mmol/L (3-11); Blood Urea Nitrogen 17.0 mg/dL (8-24); CO2, Blood 7.0 mmol/L (21-32); Calcium, Blood 8.1 mg/dL (8.5-10.1); Chloride, Blood 100.0 mmol/L (98-108); Creatinine, Blood 0.88 mg/dL (0.60-1.20); Glucose, Blood 269.0 mg/dL (70-99); Phosphorus, Blood 3.0 mg/dL (2.5-4.9); Potassium, Blood 5.9 mmol/L (3.5-5.5); Sodium, Blood 128.0 mmol/L (136-145)
[2025-03-23] MEDS ORDERED: D5W-1/2NS 1,000 ML IV SCH (04:00)
[2025-03-23 06:08] LABS: pH Blood Venous 7.26 (7.34-7.37)
[2025-03-23 06:26] LABS: Anion Gap 20.0 mmol/L (3-11); Blood Urea Nitrogen 13.0 mg/dL (8-24); CO2, Blood 9.0 mmol/L (21-32); Calcium, Blood 6.8 mg/dL (8.5-10.1); Chloride, Blood 109.0 mmol/L (98-108); Creatinine, Blood 0.65 mg/dL (0.60-1.20); Glucose, Blood 206.0 mg/dL (70-99); Sodium, Blood 134.0 mmol/L (136-145)
[2025-03-23 06:27] LABS: Potassium, Blood 3.8 mmol/L (3.5-5.5)
[2025-03-23] MEDS ORDERED: D5W-1/2NS KCl 20mEq 1,000 ML IV SCH ×2 (07:30)
[2025-03-23] MEDS ORDERED: D5W-1/2NS KCl 40mEq 1,000 ML IV SCH (08:45)
[2025-03-23] MEDS ORDERED: Enoxaparin 40 MG/0.4 ML SYR SC SCH (09:00)
[2025-03-23 09:20] LABS: pH Blood Venous 7.30 (7.34-7.37)
[2025-03-23] MEDS ORDERED: Ondansetron HCl 2 MG / ML 2ML Vial IV PRN (09:35)
[2025-03-23 10:07] LABS: Anion Gap 19.0 mmol/L (3-11); Blood Urea Nitrogen 11.0 mg/dL (8-24); CO2, Blood 14.0 mmol/L (21-32); Chloride, Blood 105.0 mmol/L (98-108); Creatinine, Blood 0.73 mg/dL (0.60-1.20); Glucose, Blood 103.0 mg/dL (70-99); Potassium, Blood 3.9 mmol/L (3.5-5.5); Sodium, Blood 134.0 mmol/L (136-145)
[2025-03-23 10:09] LABS: Calcium, Blood 9.0 mg/dL (8.5-10.1)
--- NOTE | 2025-03-23 13:31 | NUR ---
1200 REASSESSMENT PT RESTING IN BED W INSULIN GTT INFUSING. PT REPORTING THAT NAUSEA HAS IMPROVED AND HE IS FEELING BETTER. PT'S VSS ON RM AIR. LS CLEAR. PT ALERT AND ORIENTED X4 COMMUNICATING APPROPRIATELY W STAFF.
[2025-03-23 13:48] LABS: Anion Gap 13.0 mmol/L (3-11); Blood Urea Nitrogen 9.0 mg/dL (8-24); CO2, Blood 18.0 mmol/L (21-32); Calcium, Blood 8.7 mg/dL (8.5-10.1); Chloride, Blood 107.0 mmol/L (98-108); Creatinine, Blood 0.67 mg/dL (0.60-1.20); Glucose, Blood 149.0 mg/dL (70-99); Potassium, Blood 4.0 mmol/L (3.5-5.5); Sodium, Blood 134.0 mmol/L (136-145)
--- NOTE | 2025-03-23 16:45 | NUR ---
1600 ASSESSMENT PATIENT IS A&0X4 AND ABLE TO MAKE NEEDS KNOWN. NO FOCAL DEFICITS. HR SINUS IN THE 70S-80S. BP STABLE WITH MAPS >65. SPO2 >96% ON RA. PATIENT ABLE TO USE THE URINAL IND. THE PLAN IS TO TRANSITION THE PATIENT OFF OF THE INSULIN DRIP AND TO INSULIN GLARGINE AND SLIDING SCALE MEAL COVERAGE. PATIENT WAS ABLE TO TAKE IN CLEAR LIQUIDS WITHOUT NAUSEA/VOMITING. CALL LIGHT NEAR.
[2025-03-23 17:04] LABS: Anion Gap 11.0 mmol/L (3-11); Blood Urea Nitrogen 7.0 mg/dL (8-24); CO2, Blood 20.0 mmol/L (21-32); Calcium, Blood 8.9 mg/dL (8.5-10.1); Chloride, Blood 108.0 mmol/L (98-108); Creatinine, Blood 0.64 mg/dL (0.60-1.20); Glucose, Blood 173.0 mg/dL (70-99); Potassium, Blood 3.7 mmol/L (3.5-5.5); Sodium, Blood 135.0 mmol/L (136-145)
[2025-03-23] MEDS ORDERED: Insulin Glargine-Yfgn 100 Unit/mL 3 ML SYR SC ONE (18:00)
--- NOTE | 2025-03-23 18:16 | NUR ---
DAY SHIFT SUMMARY PT HAS BEEN ALERT AND ORIENTED THIS SHIFT COMMUNICATING APPROPRIATELY W STAFF. PT ON INSULIN GTT ALL SHIFT AND D5 1/2 NS W KCL INFUSING AT 150 ML/HR. PT'S VSS ON RM AIR. PER DR. KNIGHT PT TO BE TRANSITIONED OFF OF INSULIN GTT AND TO EAT DINNER. PT TOLERATING PO INTAKE DENYING ANY NAUSEA. INSULIN GTT STILL INFUSING TO BE TURNED OFF AT 1930. WILL REPORT TO ONCOMING RN.
[2025-03-23] MEDS ORDERED: Insulin Human Lispro 100 Units/ML 3ML Syringe SC SCH (21:00)
[2025-03-23 21:37] LABS: Alanine Aminotransfer (ALT/SGP 39.0 U/L (12-78); Albumin, Blood 3.6 g/dL (3.4-5.0); Albumin/Globulin Ratio 1.4 (0.8-1.8); Anion Gap 12.0 mmol/L (3-11); Aspartate Aminotrans (AST/SGOT 23.0 U/L (12-37); Bilirubin, Total 0.6 mg/dL (0.1-1.0); Blood Urea Nitrogen 8.0 mg/dL (8-24); CO2, Blood 21.0 mmol/L (21-32); Calcium, Blood 8.9 mg/dL (8.5-10.1); Chloride, Blood 106.0 mmol/L (98-108); Creatinine, Blood 0.74 mg/dL (0.60-1.20); Globulin, Blood 2.6 g/dL (2.2-4.0); Glucose, Blood 245.0 mg/dL (70-99); Potassium, Blood 3.7 mmol/L (3.5-5.5); Sodium, Blood 135.0 mmol/L (136-145); Total Protein, Blood 6.2 g/dL (6.4-8.2)
[2025-03-24] VITALS: BP 121/90
--- NOTE | 2025-03-24 00:33 | NUR ---
PT UPDATE STOPPED INSULIN AND D5/NS AT 1930.
[2025-03-24 02:00] VITALS: BP 111/71
[2025-03-24 04:00] VITALS: BP 106/69
[2025-03-24 05:02] LABS: Anion Gap 10.0 mmol/L (3-11); Blood Urea Nitrogen 9.0 mg/dL (8-24); CO2, Blood 23.0 mmol/L (21-32); Calcium, Blood 8.6 mg/dL (8.5-10.1); Chloride, Blood 106.0 mmol/L (98-108); Creatinine, Blood 0.62 mg/dL (0.60-1.20); Glucose, Blood 230.0 mg/dL (70-99); Potassium, Blood 3.4 mmol/L (3.5-5.5); Sodium, Blood 136.0 mmol/L (136-145)
[2025-03-24 06:00] VITALS: BP 104/71
--- NOTE | 2025-03-24 06:01 | NUR ---
END OF SHIFT SUMMARY PT IS A&0 X4, ABLE TO MAKE NEEDS KNOWN AND CAN MOVE EXTREMITIES EQUALLY AND BILATERALLY. CONTINUOUS CARDAIC MONITORING IS IN PLACE AND SHOWS SINUS RHYTHM, MAP >65. PT IS ON RA WITH SP02 >92%. PT CAN TOLERATE PO INTAKE WELL AND USES URINAL INDEPENDENTLY. POWERGLIDE IS IN PLACE TO THE RUE AND PIV IS IN PLACE TO THE L HAND. BED IN LOWEST POSITION, CALL LIGHT IN REACH, WILL REPORT TO ONCOMING SHIFT.
[2025-03-24] MEDS ORDERED: Insulin Human Lispro 100 Units/ML 3ML Syringe SC SCH (07:30)
[2025-03-24 07:51] VITALS: BP 112/96
--- NOTE | 2025-03-24 07:57 | NUR ---
ASSUMPTION OF CARE ASSUMED CARE OF PT APPROX 0700. PT RESTING IN BED, A/O X4, ABLE TO ANSWER QUESTIONS APPROPRIATELY. RHYTHM IS SINUS IN THE 60S ON MONITOR, BP STABLE WITH MAP >65. SATS >92% ON RA, RESPIRATIONS ARE EVEN AND UNLABORED. PT IS INDEPENDENT IN THE ROOM, USES URINAL AT BEDSIDE WITH NO ASSISTANCE NEEDED. ENDORSES DESIRE TO GO HOME TODAY IF POSSIBLE. DENIES FURTHER UNMET NEEDS, CALL LIGHT WITHIN REACH.
[2025-03-24] MEDS ORDERED: Insulin Glargine-Yfgn 100 Unit/mL 3 ML SYR SC SCH (09:00)
--- NOTE | 2025-03-24 09:59 | NUR ---
DISCHARGE EXPLAINED DISCHARGE INSTRUCTIONS, PT TO FOLLOW UP WITH PRIMARY CARE WITHIN 1 WEEK, EDUCATION PROVIDED ON PRESCRIPTIONS SENT TO PHARMACY AND DISEASE-SPECIFIC EDUCATION PROVIDED. IVS REMOVED AND ALL BELONGINGS RETURNED TO PT. PT EXPRESSED UNDERSTANDING OF DISCHARGE INSTRUCTIONS. PT WALKING TO LOBBY TO WAIT FOR RIDE.
== END 2025-03-24 10:08 | disposition home or self-care (01) | DRG 638 ==
LOC: ER 20:12 → ERHOLD 23:41 → ICUE 23:41
PROVIDERS: Nurse Practitioner Acute Care; Physician Assistant; ADMIT Student in an Organized Health Care Education/Training Program
DX: E10.10 Type 1 diabetes mellitus with ketoacidosis without coma (principal); R64 Cachexia; F17.210 Nicotine dependence, cigarettes, uncomplicated; D72.829 Elevated white blood cell count, unspecified; Z79.4 Long term (current) use of insulin; Z79.899 Other long term (current) drug therapy; Z79.85 Long-term (current) use of injectable non-insulin antidiabetic drugs; Z87.442 Personal history of urinary calculi; Z68.21 Body mass index [BMI] 21.0-21.9, adult; Z23 Encounter for immunization
CPT/HCPCS: 80048; 80053; 82010; 82803; 82947; 83735; 84100; 85025; 93005; 93010; 96361; 96374; 99285-25; A9270; C1751; J1650; J1815; J2405; J7030